=== PATIENT | female | born 1965 | race Caucasian/White ===

== ENCOUNTER 2017-08-17 10:01 | Emergency (ER) | payer SELFPAY ==
[2017-08-17 10:45] VITALS: BP 137/90; PULSE 76; RESP 20; TEMP 36.8; O2SAT 99; BMI 29.2
[2017-08-17 11:17] LABS: UTC Influenza A Antigen Negative (Negative); UTC Influenza B Antigen Negative (Negative)
--- NOTE | 2017-08-17 11:36 | XR_ITS ---
XR chest 2V Ordering Physician: Kaylah Pascual Patient Age: 51 years: Female HISTORY: ITS.REASON: sob cough congestion TECHNIQUE: PA and lateral chest COMPARISON :02/23/2016 and December 2013 FINDINGS . Lungs well expanded and clear with nothing definitely acute central markings upper normal could reflect subtle underlying bronchitis but equivocal. Heart sweetie and mediastinal structures satisfactory. IMPRESSION: --- No focal pneumonia. Nothing definitely acute. Central markings upper normal prominence could reflect some mild central airway inflammation/bronchitis but no focal pneumonia. Mild hyperexpansion.
--- NOTE | 2017-08-17 11:37 | HMH.EDUTC ---
[facility] [place] Disposition Clinical Impression: Acute bronchitis Qualifiers: Bronchitis organism: other organism Qualified Code(s): J20.8 - Acute bronchitis due to other specified organisms Disposition: Home, Self-Care Condition on Discharge: Good Instructions: Acute Bronchitis, DI for Acute Bronchitis Additional Instructions: Tylenol or ibuprofen as needed for pain Primary care this week Meds as ordered Symptoms worsen or do not improve return or be seen in ER Prescriptions: Azithromycin [Zithromax 250mg tab] 250 mg PO DIRECTED #6 tab Referrals: Bozena Edgar MD [Primary Care Provider] - Time of Disposition: 13:21 Medical Decision Making Vital Signs: 08/17/17 10:45 Temperature 98.2 F Temperature Source Temporal Artery Scan Pulse Rate [Brachial] 76 Respiratory Rate 20 Blood Pressure [Right Arm] 137/90 Blood Pressure Mean [Right Arm] 105 Blood Pressure Source [Right Arm] Automatic Cuff Blood Pressure Position [Right Arm] Sitting 02 Sat by Pulse Oximetry 99 Oxygen Delivery Method Room Air - Lab Data Lab Results 08/17/17 10:46: Influenza Type A Ag Negative, Influenza Type B Ag Negative 08/17/17 12:00: WBC 8.3, RBC 4.56, Hgb 12.9, Hct 38.7, MCV 85.0, MCH 28.3, MCHC 33.2, RDW 14.0, Plt Count 336, MPV 7.0 L, Neut % (Auto) 64.3, Lymph % (Auto) 25.5, [place] % (Auto) 4.3, Eos % (Auto) 5.5, Baso % (Auto) 0.4, Neut # (Auto) 5.3, Lymph # (Auto) 2.1, [place] # (Auto) 0.4, Eos # (Auto) 0.5 H, Baso # (Auto) 0.0 08/17/17 12:00: Sodium 145, Potassium 4.0, Chloride 107, Carbon Dioxide 31, Anion Gap 11.0, BUN 10, Creatinine 0.60, Estimated Creat Clear 135, Estimated GFR 105, Est GFR ( Amer) 128, Glucose 90, Calcium 8.9, Total Bilirubin 0.3, AST 16, ALT 46, Alkaline Phosphatase 81, Total Creatine Kinase 95, CK-MB (CK-2) 0.9, CK-MB (CK-2) Rel Index 0.9, Troponin I < 0.02, Total Protein 7.6, Albumin 3.6, Globulin 4.0 H, Albumin/Globulin Ratio 0.9 L Result diagrams: 08/17/17 12:00 08/17/17 12:00 Orders (Tests/Meds): ORDERS Category Date Time Status XR chest 2V Stat Exams 08/17/17 11:36 Taken ECG Request by /Axel Stat Y 08/17/17 11:36 Ordered - Radiology Data #1 Image(s): Chest Image Reviewed: Yes I reviewed the patient's radiology image Preliminary Findings: Normal/NAD - Physician Consults Physician Consulted: dr wynn Time: 13:15 Reason -: Pt condition Comment/Response: x ray neg - Juan Francisco Inquiry Pt receiving controlled substance: No [facility] [place] HPI - General Chief complaint: [facility] Stated complaint: sore throat congestion weak Time Seen by Provider: 08/17/17 11:37 Mode of Arrival: Ambulatory Source of Information: Patient Limitations: No Limitations Description of Symptoms (Recalled from Triage Doc. by RN): SORE THROAT, WEAKNESS, CONGESTION AND COUGH HEENT Symptoms (Recalled from RN notes): Yes Resp Symptoms (Recalled from RN notes): Yes Skin Symptoms (Recalled from RN notes): No MS Symptoms (Recalled from RN notes): No Functional Status (Recalled from RN notes): NA - History of Present Illness Provider Complaint: 51-year-old female presents for chest congestion, nasal congestion, pain between shoulder blades in the back, shortness of breath, coughing up thick green sputum and malaise since Thursday. - Related Data Home Medications Medication Instructions Recorded Confirmed Cetirizine HCl [Zyrtec] 10 mg PO DAILY 08/17/17 08/17/17 Iron [Iron 18mg Tab] 18 mg PO DAILY 08/17/17 08/17/17 Previous Rx's Medication Instructions Recorded Azithromycin [Zithromax 250mg 250 mg PO DIRECTED #6 tab 08/17/17 tab] Allergies Allergy/AdvReac Type Severity Reaction Status Date / Time promethazine [From Phenergan] Allergy Verified 08/17/17 10:48 - Worker's Comp Is this a Worker's Comp case?: No [facility] History I have reviewed the patient's past medical history: Yes - *Social History Smoking Status: Current every day smoker Tobacco Type: cig
--- NOTE | 2017-08-17 11:44 | ED_ITS ---
[facility] [place] Clinical Impression: Acute bronchitis Qualifiers: Bronchitis organism: other organism Qualified Code(s): J20.8 - Acute bronchitis due to other specified organisms Disposition: Home, Self-Care Condition on Discharge: Good Instructions: Acute Bronchitis, DI for Acute Bronchitis Additional Instructions: Tylenol or ibuprofen as needed for pain Primary care this week Meds as ordered Symptoms worsen or do not improve return or be seen in ER Prescriptions: Azithromycin [Zithromax 250mg tab] 250 mg PO DIRECTED #6 tab Referrals: Bozena Edgar MD [Primary Care Provider] - Time of Disposition: 13:21 Medical Decision Making Vital Signs: 08/17/17 10:45 Temperature 98.2 F Temperature Source Temporal Artery Scan Pulse Rate [Brachial] 76 Respiratory Rate 20 Blood Pressure [Right Arm] 137/90 Blood Pressure Mean [Right Arm] 105 Blood Pressure Source [Right Arm] Automatic Cuff Blood Pressure Position [Right Arm] Sitting 02 Sat by Pulse Oximetry 99 Oxygen Delivery Method Room Air - Lab Data Lab Results 08/17/17 10:46: Influenza Type A Ag Negative, Influenza Type B Ag Negative 08/17/17 12:00: WBC 8.3, RBC 4.56, Hgb 12.9, Hct 38.7, MCV 85.0, MCH 28.3, MCHC 33.2, RDW 14.0, Plt Count 336, MPV 7.0 L, Neut % (Auto) 64.3, Lymph % (Auto) 25.5, [place] % (Auto) 4.3, Eos % (Auto) 5.5, Baso % (Auto) 0.4, Neut # (Auto) 5.3 , Lymph # (Auto) 2.1, [place] # (Auto) 0.4, Eos # (Auto) 0.5 H, Baso # (Auto) 0.0 08/17/17 12:00: Sodium 145, Potassium 4.0, Chloride 107, Carbon Dioxide 31, Anion Gap 11.0, BUN 10, Creatinine 0.60, Estimated Creat Clear 135, Estimated GFR 105, Est GFR ( Amer) 128, Glucose 90, Calcium 8.9, Total Bilirubin 0.3, AST 16, ALT 46, Alkaline Phosphatase 81, Total Creatine Kinase 95, CK-MB ( CK-2) 0.9, CK-MB (CK-2) Rel Index 0.9, Troponin I < 0.02, Total Protein 7.6, Albumin 3.6, Globulin 4.0 H, Albumin/Globulin Ratio 0.9 L Result diagrams: 08/17/17 12:00 08/17/17 12:00 Orders (Tests/Meds): ORDERS Category Date Time Status XR chest 2V Stat Exams 08/17/17 11:36 Taken ECG Request by /Axel Stat Y 08/17/17 11:36 Ordered - Radiology Data #1 Image(s): Chest Image Reviewed: Yes I reviewed the patient's radiology image Preliminary Findings: Normal/NAD - Physician Consults Physician Consulted: dr wynn Time: 13:15 Reason -: Pt condition Comment/Response: x ray neg - Juan Francisco Inquiry Pt receiving controlled substance: No [facility] [place] - General Chief complaint: [facility] Stated complaint: sore throat congestion weak Time Seen by Provider: 08/17/17 11:37 Mode of Arrival: Ambulatory Source of Information: Patient Limitations: No Limitations Description of Symptoms (Recalled from Triage Doc. by RN): SORE THROAT, WEAKNESS , CONGESTION AND COUGH HEENT Symptoms (Recalled from RN notes): Yes Resp Symptoms (Recalled from RN notes): Yes Skin Symptoms (Recalled from RN notes): No MS Symptoms (Recalled from RN notes): No Functional Status (Recalled from RN notes): NA - History of Present Illness Provider Complaint: 51-year-old female presents for chest congestion, nasal congestion, pain between shoulder blades in the back, shortness of breath, coughing up thick green sputum and malaise since Thursday. - Related Data Home Medications Medication Instructions Recorded Confirmed Cetirizine HCl [Z
[2017-08-17 12:18] LABS: Basophils % 0.4 % (0.1-2.0); Eosinophils # 0.5 K/mm3 (0.0-0.4); Eosinophils % 5.5 % (0.1-12.0); Hematocrit 38.7 % (37.0-47.0); Hemoglobin 12.9 g/dL (12.2-16.2); Lymphocytes # 2.1 K/mm3 (0.7-4.5); Lymphocytes % 25.5 K/mm3 (10-50); Mean Corpuscular HGB Conc 33.2 g/dL (31.8-35.4); Mean Corpuscular Hemoglobin 28.3 pg (27.0-31.2); Monocytes # 0.4 K/mm3 (0.1-1.0); Monocytes % 4.3 % (1.7-9.3); Neutrophils # 5.3 K/mm3 (1.8-7.8); Neutrophils % 64.3 % (37.0-80.0); Platelet Count 336 K/mm3 (142-424); Red Blood Count 4.56 M/mm3 (4.20-5.40); White Blood Count 8.3 K/mm3 (4.8-10.8)
[2017-08-17 12:59] LABS: Alanine Aminotransferase 46 U/L (12-78); Albumin Level 3.6 gm/dL (3.4-5.0); Albumin/Globulin Ratio 0.9 (1.1-1.8); Alkaline Phosphatase 81 U/L (46-116); Aspartate Amino Transferase 16 U/L (15-37); Bilirubin,Total 0.3 mg/dL (0.2-1.0); Blood Urea Nitrogen 10 mg/dL (7-18); CKMB Relative Index 0.9 U/L (0-4.0); Calcium 8.9 mg/dL (8.5-10.1); Carbon Dioxide 31 mmol/L (21.0-32.0); Chloride 107 mmol/L (98-107); Creatine Kinase 95 U/L (26-192); Creatine Kinase MB 0.9 mg/ml (0.0-3.6); Creatinine Clearance Estimated 135 mL/min (0-300); Estimated Glomerular Filt Rate 105 ml/min (>60); GFR (African American) 128 ML/MIN (>60); Glucose 90 mg/dL (74-106); Sodium 145 mmol/L (136-145); Total Protein,Serum 7.6 gm/dL (6.4-8.2); Troponin I < 0.02 ng/ml (0.00-0.06)
== END 2017-08-17 13:28 | disposition home or self-care (01) ==
PROVIDERS: Emergency Provider Nurse Practitioner Family; Family Provider Family Medicine; PCP Family Medicine
DX: J20.8 Acute bronchitis due to other specified organisms (principal); F17.210 Nicotine dependence, cigarettes, uncomplicated
CPT/HCPCS: 36415; 71046; 80053; 82550; 82553; 84484; 85025; 87804; 93005; 99202

== ENCOUNTER 2021-08-08 09:03 | Emergency (ER) | payer BC, SELFPAY ==
--- NOTE | 2021-08-08 09:41 | HMH.EDUTC ---
[facility] [place] Clinical Impression: Viral syndrome Disposition: Home, Self-Care Condition on Discharge: Good Instructions: DI for Viral Syndrome Additional Instructions: Drink plenty of fluids. Take tylenol or ibuprofen for pain or fever. Take the medications as directed. Follow up with your regular doctor. GO TO THE ER FOR ANY WORSENING SYMPTOMS Quarantine until you know the results of your covid-19 test. Notify your school or workplace of your results and follow their instructions regarding return to work/school. The medicines we sent in are more for symptoms that might start. Make sure you are drinking plenty of fluids. Water or an electrolyte sports drink would be best. Prescriptions: Ondansetron [Zofran 4mg ODT] 4 mg PO Q8HP PRN #20 tab PRN Reason: Nausea Transmission Status: Pending to [facility] Benzonatate [Benzonatate 100mg cap] 100 mg PO TIDP PRN #30 cap PRN Reason: Cough Transmission Status: Pending to [facility] Azithromycin [Z-Vik 250mg Tab*] 250 mg PO UD DOSE PK #6 tab Transmission Status: Pending to [facility] Referrals: Donaldo Pride MD [Primary Care Provider] - Time of Disposition: 11:48 Medical Decision Making - Medical Records Medical records reviewed: No: I reviewed the patient's medical records. - Juan Francisco Inquiry Pt receiving controlled substance: No Vital Signs: 08/08/21 09:44 08/08/21 10:04 Temperature 98.7 F Temperature Source Oral Pulse Rate [Left] 81 Pulse Rate [Orthostatic Lying] 79 Pulse Rate [Orthostatic Sitting] 81 Pulse Rate [Orthostatic Standing] 84 Respiratory Rate 18 Blood Pressure [Orthostatic Lying] 92/63 L Blood Pressure [Orthostatic Sitting] 93/73 L Blood Pressure [Orthostatic Standing] 77/48 L Blood Pressure [Right Arm] 93/73 L Blood Pressure Mean [Right Arm] 79 02 Sat by Pulse Oximetry 96 - Lab Data Lab results reviewed: Yes: I reviewed the patient's lab results. Lab Results 08/08/21 09:32: Group A Strep Rapid Negative 08/08/21 10:06: WBC 6.3, RBC 4.74, Hgb 14.0, Hct 42.1, MCV 88.8, MCH 29.5, MCHC 33.2, RDW 13.0, Plt Count 281, MPV 7.4, Neut % (Auto) 67.2, Lymph % (Auto) 23.5, [place] % (Auto) 5.3, Eos % (Auto) 0.5, Baso % (Auto) 3.4 H, Neut # (Auto) 4.2, Lymph # (Auto) 1.5, [place] # (Auto) 0.3, Eos # (Auto) 0.0, Baso # (Auto) 0.2 08/08/21 10:06: Sodium 135 L, Potassium 3.6, Chloride 100, Carbon Dioxide 26, Anion Gap 12.6, BUN 11, Creatinine 0.80, Estimated Creat Clear 110, Estimated GFR 74, Est GFR ( Amer) 90, Glucose 130 H, Calcium 9.0, Total Bilirubin 0.4, AST 39 H, ALT 26, Alkaline Phosphatase 62, Total Protein 7.5, Albumin 4.5, Globulin 3.0, Albumin/Globulin Ratio 1.5 Result diagrams: 08/08/21 10:06 08/08/21 10:06 Orders (Tests/Meds): ED MEDICATIONS Generic Name Dose Route Start Last Admin Trade Name Freq PRN Reason Stop Dose Admin Sodium Chloride 1,000 mls @ 999 mls/hr 08/08/21 10:15 08/08/21 10:15 Sod Chlor 0.9% 1000ml Bag IV 08/08/21 11:15 999 mls/hr .Q1H1M GERRY Administration ORDERS Category Date Time Status Full Resp Panel w/COVID ([facility]) Routine Lab 08/08/21 09:56 Received Strep Screen Confirmation Stat Micro 08/08/21 09:32 Received [facility] [place] - General Stated complaint: sore throat, weakness, cough, body aches Time Seen by Provider: 08/08/21 09:41 - History of Present Illness Provider Complaint: She states that for the past 2 days she has had a cough, chest congestion, fever up to 101.5, body aches, and fatigue. She has been vaccinated against covid-19. - Related Data Home Medications Medication Instructions Recorded Confirmed Cetirizine HCl [Zyrtec] 10 mg PO DAILY 08/17/17 06/16/18 Iron [Iron 18mg Tab] 18 mg PO DAILY 08/17/17 06/16/18 Previous Rx's Medication Instructions Recorded Azithromycin [Z-Vik 250mg Tab*] 250 mg PO UD DOSE PK #6 tab 08/08/21 Benzonatate [Benzonatate 100mg 100 mg PO TIDP PRN #30 ca
[2021-08-08 09:44] VITALS: BP 93/73; PULSE 81; RESP 18; TEMP 37.1; O2SAT 96; BMI 33.3
--- NOTE | 2021-08-08 09:49 | XR_ITS ---
FINAL REPORT CLINICAL HISTORY: cough COMPARISON: August 17, 2017 FINDINGS: Two views of the chest were obtained. The heart size and pulmonary vascularity are within normal limits. The mediastinum is normal. No acute pulmonary abnormality is identified. There is no pneumothorax. The bony thorax is intact. IMPRESSION: No active cardiopulmonary disease. Reviewed, Interpreted and Dictated by Mitch Hubbard III, MD Transcribed by Eric Sharma Authenticated by Mitch Hubbard III, MD on 08/08/2021 11:00:27 AM [facility]
[2021-08-08 10:04] VITALS: BP 77/48; BP 92/63; BP 93/73; PULSE 79; PULSE 81; PULSE 84
[2021-08-08 10:05] LABS: Adenovirus,PCR Not Detected (NotDetected); Bordetella Pertussis Not Detected (NotDetected); Chlamydophila Pneumoniae, PCR Not Detected (NotDetected); Coronavirus 229E Not Detected (NotDetected); Coronavirus NL63 Not Detected (NotDetected); Coronavirus OC43 Not Detected (NotDetected); Coronovirus HKU1,PCR Not Detected (NotDetected); Human Metapneumovirus Not Detected (NotDetected); Influenza A, PCR Not Detected (NotDetected); Influenza AH1, 2009 Not Detected (NotDetected); Influenza AH1, PCR Not Detected (NotDetected); Influenza AH3,PCR Not Detected (NotDetected); Influenza B, PCR Not Detected (NotDetected); Mycoplasma Pneumoniae, PCR Not Detected (NotDetected); Parainfluenza 1, PCR Not Detected (NotDetected); Parainfluenza 2, PCR Not Detected (NotDetected); Parainfluenza 3, PCR Not Detected (NotDetected); Parainfluenza 4, PCR Not Detected (NotDetected); Respiratory Syncytial Virus Not Detected (NotDetected); Rhinovirus/Enterovirus Not Detected (NotDetected)
[2021-08-08 10:28] LABS: Strep Scrn Group A (Rapid) Negative (Negative)
[2021-08-08 10:49] LABS: Basophils # 0.2 K/mm3 (0-0.2); Basophils % 3.4 % (0.1-2.0); Eosinophils % 0.5 % (0.1-12.0); Hematocrit 42.1 % (37.0-47.0); Lymphocytes # 1.5 K/mm3 (0.7-4.5); Lymphocytes % 23.5 % (10-50); Mean Corpuscular HGB Conc 33.2 g/dL (31.8-35.4); Mean Corpuscular Hemoglobin 29.5 pg (27.0-31.2); Mean Corpuscular Volume 88.8 fl (81-99); Mean Platelet Volume 7.4 fl (7.4-10.4); Monocytes # 0.3 K/mm3 (0.1-1.0); Monocytes % 5.3 % (1.7-9.3); Neutrophils # 4.2 K/mm3 (1.8-7.8); Neutrophils % 67.2 % (37.0-80.0); Platelet Count 281 K/mm3 (142-424); Red Blood Count 4.74 M/mm3 (4.20-5.40); White Blood Count 6.3 K/mm3 (4.8-10.8)
[2021-08-08 10:55] LABS: Alanine Aminotransferase 26 U/L (12-78); Albumin Level 4.5 g/dl (3.5-5.0); Albumin/Globulin Ratio 1.5 (1.1-1.8); Alkaline Phosphatase 62 U/L (38-126); Anion Gap 12.6 mEq/L (5-15); Aspartate Amino Transferase 39 U/L (14-36); Bilirubin,Total 0.4 mg/dl (0.2-1.3); Blood Urea Nitrogen 11 mg/dl (7-17); Carbon Dioxide 26 mmol/L (22.0-30.0); Chloride 100 mmol/L (98-107); Creatinine Clearance Estimated 110 mL/min (50-200); Estimated Glomerular Filt Rate 74 ml/min (>60); GFR (African American) 90 ML/MIN (>60); Glucose 130 mg/dl (74-100); Potassium 3.6 mmoL/L (3.5-5.1); Sodium 135 mmol/L (136-145); Total Protein,Serum 7.5 g/dl (6.3-8.2)
[2021-08-08 12:12] VITALS: BP 107/71; PULSE 84; RESP 18; TEMP 37.1
[2021-08-08 12:48] LABS: Coronavirus 19, PCR Detected (NotDetected)
== END 2021-08-08 12:13 | disposition home or self-care (01) ==
PROVIDERS: Emergency Provider Nurse Practitioner Family; PCP Family Medicine
DX: B34.9 Viral infection, unspecified (principal); F17.290 Nicotine dependence, other tobacco product, uncomplicated
CPT/HCPCS: 71046; 80053; 85025; 87430; 87581; 87632; 87798; 96365; 99203; C9803; G0463; U0003; U0005

== ENCOUNTER 2022-05-31 08:18 | Emergency (ER) | payer BC, SELFPAY ==
[2022-05-31 08:40] VITALS: BP 153/84; PULSE 73; RESP 18; TEMP 36.9; O2SAT 98; BMI 33.5
[2022-05-31 08:57] LABS: Adenovirus,PCR Not Detected (NotDetected); Bordetella Pertussis Not Detected (NotDetected); Chlamydophila Pneumoniae, PCR Not Detected (NotDetected); Coronavirus 19, PCR Not Detected (NotDetected); Coronavirus 229E Not Detected (NotDetected); Coronavirus NL63 Not Detected (NotDetected); Coronavirus OC43 Not Detected (NotDetected); Coronovirus HKU1,PCR Not Detected (NotDetected); Human Metapneumovirus Not Detected (NotDetected); Influenza A, PCR Not Detected (NotDetected); Influenza AH1, 2009 Not Detected (NotDetected); Influenza AH1, PCR Not Detected (NotDetected); Influenza AH3,PCR Not Detected (NotDetected); Influenza B, PCR Not Detected (NotDetected); Mycoplasma Pneumoniae, PCR Not Detected (NotDetected); Parainfluenza 1, PCR Not Detected (NotDetected); Parainfluenza 2, PCR Not Detected (NotDetected); Parainfluenza 3, PCR Not Detected (NotDetected); Parainfluenza 4, PCR Not Detected (NotDetected); Respiratory Syncytial Virus Not Detected (NotDetected)
--- NOTE | 2022-05-31 08:58 | EXP.UTC ---
Discharge Plan Disposition Patient Disposition: Home, Self-Care Condition: Good Prescriptions Prescriptions: New azithromycin [Zithromax Z-Vik] 250 mg tablet See Rx Instructions .ROUTE .COMPLEX 5 Days Qty: 6 0RF Rx Instructions: For 250 mg dose pack: take 500 mg today (day 1), then 250 mg for 4 days (days 2-5) methylprednisolone [Medrol (Vik)] 4 mg tablets,dose pack See Rx Instructions .Route .COMPLEX 6 Days Qty: 21 0RF Rx Instructions: taper pack; No Action cetirizine [Zyrtec] 10 MG tablet 10 mg PO DAILY iron 18 MG tablet 18 mg PO DAILY azithromycin 250 MG tablet 250 mg PO UD DOSE PK Qty: 6 0RF Rx Instructions: Take two (2) tablets today, then one (1) tablet days #2 thru #5 benzonatate 100 MG capsule 100 mg PO TIDP PRN (Reason: Cough) Qty: 30 0RF ondansetron 4 MG tablet,disintegrating 4 mg PO Q8HP PRN (Reason: Nausea) Qty: 20 0RF Referrals Follow up/Referrals: Bay Sherman MD [Primary Care Provider] - See instructions Activity Restrictions/Add. Instructions Additional Instructions/Restrictions: *Monitor Temp, Over the counter Motrin or Tylenol as directed/as needed Tylenol every 4 hours and Motrin every 6 hours (as long as your family doctor has told you that you can take it) for fever or pain. and straight to ER if unable to lower temp less than 101.0 after medication given *Warm salt water gargles may help to soothe the throat *Throat Lozenges? *Warm fluids like tea with honey may help to soothe the throat? *Sleep elevated *Humidifier/Vaporizer Your throat swab was sent for culture. Those results are typically sent to your primary care. Be sure to follow up in 2-3 days with your family doctor/primary care physician if no improvement so they can review those result and treat if necessary. If you don?t have a primary care doctor, I recommend you get one but in the mean time, you will have to return to a walk in clinic Follow up IMMEDIATELY for new or worsening symptoms or no Noticeable improvement over the next 48-72 hours. 911 for difficulty breathing or swallowing You were tested for today for COVID19 your test result should be back in the next 24-48 hours, you may check your results on the [facility] My Health Portal Clinical Impressions Clinical Impression: Sinusitis Stand Alone Forms Stand Alone Forms: Work/School Release Instructions Patient Instructions: DI for Sinusitis, Sinusitis Discharge ED Provider: Lisa Calvin [facility] [place] General Stated complaint: sore throat, sinus pressure, sob, cough Time Seen by Provider: 05/31/22 08:58 History of Present Illness Provider Complaint: Patient state that she has been having sinus pain and pressure, sore throat, feeling like she cant breath through her nose and cough States that today she was feeling worse so she came in States that she was exposed to COVID last week but has taken test and it was negative thinks she has a sinus infection Related Data Home Medications Medication Instructions Recorded Confirmed cetirizine 10 mg tablet (Zyrtec) 10 mg PO DAILY ALLERGIES 08/17/17 06/16/18 iron 18 mg tablet 18 mg PO DAILY DEF 08/17/17 06/16/18 Previous Rx's Medication Instructions Recorded azithromycin 250 mg tablet 250 mg PO UD DOSE PK #6 tabs 08/08/21 benzonatate 100 mg capsule 100 mg PO TIDP PRN Cough #30 caps 08/08/21 ondansetron 4 mg disintegrating 4 mg PO Q8HP PRN Nausea #20 tabs 08/08/21 tablet azithromycin 250 mg tablet See Rx Instructions PO .COMPLEX 5 05/31/22 (Zithromax Z-Vik) days #6 tabs methylprednisolone 4 mg tablets in See Rx Instructions .Route 05/31/22 a dose pack (Medrol (Vik)) .COMPLEX 6 days #21 tabs Allergies Allergy/AdvReac Type Severity Reaction Status Date / Time promethazine [From Phenergan] Allergy Verified 08/17/17 10:48 [facility] Medical History (Updated 05/31/22 @ 09:16 by Lisa Calvin APRN) Anxiety Depression History
[2022-05-31 09:13] LABS: UTC Strep Screen (Rapid) Negative (Negative)
[2022-05-31 09:20] VITALS: BP 153/84; PULSE 73; RESP 18; TEMP 36.9; O2SAT 98
[2022-05-31 15:34] LABS: Rhinovirus/Enterovirus Detected (NotDetected)
== END 2022-05-31 09:26 | disposition home or self-care (01) ==
PROVIDERS: Emergency Provider Nurse Practitioner; PCP Family Medicine
DX: J32.9 Chronic sinusitis, unspecified (principal)
CPT/HCPCS: 87581; 87632; 87798; 87880; 99212; C9803; G0463; U0003; U0005

== ENCOUNTER 2022-07-20 19:40 | Observation (INO) | payer OTHER, SELFPAY ==
[2022-07-20] VITALS (8 sets, daily range): BP systolic 101–143; BP diastolic 69–103; PULSE 86–155; RESP 17–23; TEMP 36.9; O2SAT 97–100; BMI 35.2
--- NOTE | 2022-07-20 19:51 | XR_ITS ---
PROCEDURE INFORMATION: Exam: XR Chest Exam date and time: 07/20/2022 8:17 PM Age: 56 years old Clinical indication: Pain; Angina pectoris; Additional info: Cp, SOA, afib rvr TECHNIQUE: Imaging protocol: Radiologic exam of the chest. Views: 1 view. COMPARISON: CR XR CHEST 2V 08/08/2021 10:04 AM FINDINGS: Lungs: Diminished lung volumes. No consolidation. Pleural spaces: No pneumothorax. Heart/Mediastinum: No cardiomegaly. Bones/joints: Degenerative changes of the shoulders. No acute abnormality. IMPRESSION: No acute findings.
[2022-07-20 19:59] LABS: Basophils # 0.1 K/mm3 (0-0.2); Basophils % 1.3 % (0.1-2.0); Eosinophils # 0.3 K/mm3 (0.0-0.4); Eosinophils % 4.2 % (0.1-12.0); Hematocrit 41.6 % (37.0-47.0); Lymphocytes # 3.4 K/mm3 (0.7-4.5); Lymphocytes % 48.5 % (10-50); Mean Corpuscular HGB Conc 33.6 g/dL (31.8-35.4); Mean Corpuscular Hemoglobin 29.5 pg (27.0-31.2); Mean Corpuscular Volume 87.7 fl (81-99); Mean Platelet Volume 7.3 fl (7.4-10.4); Monocytes # 0.4 K/mm3 (0.1-1.0); Monocytes % 5.5 % (1.7-9.3); Neutrophils # 2.8 K/mm3 (1.8-7.8); Neutrophils % 40.5 % (37.0-80.0); Platelet Count 378 K/mm3 (142-424); Red Blood Count 4.74 M/mm3 (4.20-5.40); Red Cell Distribution Width 13.4 % (11.5-17.5)
[2022-07-20 20:01] LABS: Coronavirus 19, PCR Not Detected (NotDetected); Influenza A, PCR Not Detected (NotDetected); Influenza B, PCR Not Detected (NotDetected)
[2022-07-20 20:02] LABS: Chloride 104 mmol/L (98-107)
[2022-07-20 20:03] LABS: Potassium 3.6 mmoL/L (3.5-5.1); Sodium 140 mmol/L (136-145)
[2022-07-20 20:05] LABS: Alanine Aminotransferase 31 U/L (12-78); Alkaline Phosphatase 63 U/L (38-126); Aspartate Amino Transferase 33 U/L (14-36); Bilirubin,Total 0.4 mg/dl (0.2-1.3); Blood Urea Nitrogen 14 mg/dl (7-17); Creatinine Clearance Estimated 115 mL/min (50-200); Estimated Glomerular Filt Rate 74 ml/min (>60); GFR (African American) 90 ML/MIN (>60); Magnesium 2.1 mg/dl (1.6-2.3)
[2022-07-20 20:06] LABS: Albumin Level 4.5 g/dl (3.5-5.0); Albumin/Globulin Ratio 1.4 (1.1-1.8); Anion Gap 11.6 mEq/L (5-15); Calcium 9.4 mg/dl (8.4-10.2); Carbon Dioxide 28 mmol/L (22.0-30.0); Globulin 3.3 g/dL (1.3-3.2); Glucose 104 mg/dl (74-100); Total Protein,Serum 7.8 g/dl (6.3-8.2)
--- NOTE | 2022-07-20 20:19 | HMH.EDARPALP ---
Discharge Plan Disposition Patient Disposition: Admitted As Inpatient Prescriptions Prescriptions: No Action cetirizine [Zyrtec] 10 MG tablet 10 mg PO DAILY iron 18 MG tablet 18 mg PO DAILY Referrals Follow up/Referrals: Provider,Referral, MD [Referring] - See instructions Clinical Impressions Clinical Impression: Atrial flutter Discharge ED Provider: Guillaume Maria Arrhythmia/Palpitations HPI General Chief Complaint: Arrhythmia/Palpitations Stated Complaint: chest pain Time Seen by Provider: 07/20/22 20:00 Mode of Arrival: Family Vehicle Source of Information: Patient and Medical Record Limitations: No Limitations History of Present Illness HPI narrative: pt with feeling of fast hr with assoc chest pain MD complaint: rapid heart beat and palpitations Onset (ago): hour(s) Duration: intermittent Severity: moderate Associated symptoms: denies other symptoms Related Data Home Medications Medication Instructions Recorded Confirmed cetirizine 10 mg tablet (Zyrtec) 10 mg PO DAILY ALLERGIES 08/17/17 06/16/18 iron 18 mg tablet 18 mg PO DAILY DEF 08/17/17 06/16/18 Allergies Allergy/AdvReac Type Severity Reaction Status Date / Time promethazine [From Phenergan] Allergy Verified 08/17/17 10:48 [facility] Disclaimer: The information contained in this section may have been updated after the patient was seen, as this information can be updated by other users. Medical History Anxiety Depression History of anemia Urinary tract infection Surgical History (Updated 05/31/22 @ 09:02 by Ekta Negrete RN) History of tubal ligation Social History Smoking Status: Current every day smoker tobacco type: e-cigarettes alcohol intake: former current occupational status: other Travel in the last 8 weeks: None ROS Obtained: Yes All systems reviewed & no additional complaints except as documented Physical Exam General General appearance: alert Head Head exam: normocephalic Eye Eye exam: Present PERRL and EOMI ENT ENT exam: Present mucous membranes moist Neck Neck exam: Present trachea midline Respiratory Respiratory exam: Present normal lung sounds bilaterally Cardiovascular Cardiovascular exam: Present tachycardia Abdominal Exam Abdominal exam: Present soft Extremities Exam Extremities exam: Present full ROM; Absent calf tenderness Neurological Exam Neurological exam: Present alert and CN II-XII intact Psychiatric Psychiatric exam: Present normal affect Skin Skin exam: Absent rash Medical Decision Making Medical Records Medical records reviewed: Yes I reviewed the patient's medical records. Juan Francisco Inquiry Pt receiving controlled substance: No Vital Signs: 07/20/22 19:41 Temperature 98.5 F Temperature Source Oral Pulse Rate [Right] 155 H Respiratory Rate 23 Blood Pressure [Right Arm] 143/103 H Blood Pressure Mean [Right Arm] 116 Blood Pressure Source [Right Arm] Automatic Cuff 02 Sat by Pulse Oximetry 100 Oxygen Delivery Method Room Air Lab Data Lab results reviewed: Yes I reviewed the patient's lab results. Lab Results 07/20/22 19:42: WBC 7.0, RBC 4.74, Hgb 14.0, Hct 41.6, MCV 87.7, MCH 29.5, MCHC 33.6, RDW 13.4, Plt Count 378, MPV 7.3 L, Neut % (Auto) 40.5, Lymph % (Auto) 48.5, [place] % (Auto) 5.5, Eos % (Auto) 4.2, Baso % (Auto) 1.3, Neut # (Auto) 2.8, Lymph # (Auto) 3.4, [place] # (Auto) 0.4, Eos # (Auto) 0.3, Baso # (Auto) 0.1 07/20/22 19:42: Sodium 140, Potassium 3.6, Chloride 104, Carbon Dioxide 28, Anion Gap 11.6, BUN 14, Creatinine 0.80, Estimated Creat Clear 115, Estimated GFR 74, Est GFR ( Amer) 90, Glucose 104 H, Calcium 9.4, Total Bilirubin 0.4, AST 33, ALT 31, Alkaline Phosphatase 63, Troponin I < 0.01, Total Protein 7.8, Albumin 4.5, Globulin 3.3 H, Albumin/Globulin Ratio 1.4, TSH 5.51 H, Thyroxine (T4) 7.7 07/20/22 19:42: Magnesium
[2022-07-20 20:23] LABS: T4 (Thyroxine) 7.7 ug/dl (5.53-11.0)
--- NOTE | 2022-07-20 20:24 | ECG_ITS ---
APPROVED REPORT Exam: Resting ECG HR:158 bpm ECG Measurements Heart Rate 158 AXES QRSd 90 QRS 17 QT 257 T 75 QTc 345 Conclusion ATRIAL FIBRILLATION WITH RAPID VENTRICULAR RESPONSE NONSPECIFIC ST & T-WAVE ABNORMALITY CRITICAL TEST RESULT UNCONFIRMED REPORT Electronically signed by : Donaldo Pa MD 07/21/2022 20:03:35
[2022-07-20 20:34] LABS: Troponin I < 0.01 ng/ml (0.00-0.034)
[2022-07-20 20:37] LABS: Thyroid Stimulating Hormone 5.51 uIU/mL (0.465-4.68)
--- NOTE | 2022-07-20 21:03 | EXP.HP ---
History of Present Illness *Admission Date: 07/20/22 [facility] Disclaimer: The information contained in this section may have been updated after the patient was seen, as this information can be updated by other users. Medical History (Updated 07/20/22 @ 20:55 by Guillaume Maria MD) Anxiety Depression History of anemia Urinary tract infection Surgical History (Updated 05/31/22 @ 09:02 by Ekta Negrete, RN) History of tubal ligation Social History (Updated 05/31/22 @ 09:02 by Ekta Negrete RN) Smoking Status: Current every day smoker tobacco type: e-cigarettes alcohol intake: former current occupational status: other Travel in the last 8 weeks: None Meds Home Medications and Allergies Home Medications Medication Instructions Recorded Confirmed Type cetirizine 10 mg tablet (Zyrtec) 10 mg PO DAILY ALLERGIES 08/17/17 06/16/18 History iron 18 mg tablet 18 mg PO DAILY DEF 08/17/17 06/16/18 History New Prescriptions to Start Prescriptions: Allergies Allergy/AdvReac Type Severity Reaction Status Date / Time promethazine [From Phenergan] Allergy Verified 08/17/17 10:48 Exam Data for Last 24 hours Vital signs and Labs for Last 24 Hours: Temp Pulse Resp BP Pulse Ox 98.5 F 155 H 23 143/103 H 100 07/20/22 19:41 07/20/22 19:41 07/20/22 19:41 07/20/22 19:41 07/20/22 19:41 Laboratory Results - last 24 hr 07/20/22 19:42: WBC 7.0, RBC 4.74, Hgb 14.0, Hct 41.6, MCV 87.7, MCH 29.5, MCHC 33.6, RDW 13.4, Plt Count 378, MPV 7.3 L, Neut % (Auto) 40.5, Lymph % (Auto) 48.5, [place] % (Auto) 5.5, Eos % (Auto) 4.2, Baso % (Auto) 1.3, Neut # (Auto) 2.8, Lymph # (Auto) 3.4, [place] # (Auto) 0.4, Eos # (Auto) 0.3, Baso # (Auto) 0.1 07/20/22 19:42: Sodium 140, Potassium 3.6, Chloride 104, Carbon Dioxide 28, Anion Gap 11.6, BUN 14, Creatinine 0.80, Estimated Creat Clear 115, Estimated GFR 74, Est GFR ( Amer) 90, Glucose 104 H, Calcium 9.4, Total Bilirubin 0.4, AST 33, ALT 31, Alkaline Phosphatase 63, Troponin I < 0.01, Total Protein 7.8, Albumin 4.5, Globulin 3.3 H, Albumin/Globulin Ratio 1.4, TSH 5.51 H, Thyroxine (T4) 7.7 07/20/22 19:42: Magnesium 2.1 07/20/22 19:50: SARS-CoV-2 (PCR) Not detected, Influenza A Untype (PCR) Not detected, Influenza Type B (PCR) Not detected I & O for Last 24 hours: Intake & Output 07/17/22 07/18/22 07/19/22 07/20/22 23:59 23:59 23:59 23:59 Weight 92.986 kg
[2022-07-20 21:18] LABS: HDL Cholesterol 73 mg/dl (40-60); Triglycerides 171 mg/dl (30-150); VLDL Cholesterol 34 mg/dL (0-40)
[2022-07-20 21:29] LABS: Direct LDL Cholesterol 186.71 mg/dL (100-129)
[2022-07-20 21:34] LABS: Cholesterol 363 mg/dl (140-200)
--- NOTE | 2022-07-20 21:34 | PC.NURSE ---
patient informed she was staying down in the ER. Patient moved to a regular bed @ this time.
--- NOTE | 2022-07-20 21:45 | EXP.HP ---
History of Present Illness *Admission Date: 07/20/22 *Reason for visit:: Palpitations, Chest pain, dizziness, neck pain *History of present illness: Ms. Villanueva is a 56-year-old female with a past medical history of Anxiety Disorder, Iron Deficiency anemia, and Depression. She presented with an acute onset of chest pain associated with heart burn, neck pain, dizziness, palpitations and anxiety that started a few hours prior to presentation. In the ER she was found to be in Atrial Fibrillation with a rate of 158. TSH was 5.51, Free T4 was 7.7. Troponin was <0.01. Cxray showed no acute cardiopulmonary findings. Covid and Flu Testing were negative. The patient was given a loading dose of Cardizem at 10 mg and placed on a Cardizem gtt. She was given Lovenox for anticoagulation. Echo will be ordered for the am and troponin will be trended due to report of symptoms prior to presentation. The plan of care was discussed with the patient and her in length and detail at bedside in the ER prior to her admission. Both verbalized understanding and agreement with the plan of care. [facility] Disclaimer: The information contained in this section may have been updated after the patient was seen, as this information can be updated by other users. Medical History Anxiety Depression History of anemia Urinary tract infection Surgical History History of tubal ligation Family History (Updated 07/21/22 @ 08:16 by Renuka Lopez RN) No significant family history Social History (Updated 07/21/22 @ 08:17 by Renuka Lopez RN) Smoking Status: Current every day smoker tobacco type: e-cigarettes alcohol intake: former current occupational status: other Travel in the last 8 weeks: None Review of Systems Review of Systems Review of systems:: pertinent systems reviewed and negative unless documented below Constitutional Constitutional: Reports system reviewed and no additional complaints, except as documented Eyes Eyes: Reports system reviewed and no additional complaints, except as documented ENT Ears, Nose, Mouth, and Throat: Reports system reviewed and no additional complaints, except as documented and Reports dizziness *Cardiovascular Cardiovascular: Reports chest pain, Reports irregular heart rhythm and Reports palpitations *Respiratory Respiratory: Reports system reviewed and no additional complaints, except as documented *Gastrointestinal Gastrointestinal: Reports system reviewed and no additional complaints, except as documented *Genitourinary Genitourinary: Reports system reviewed and no additional complaints, except as documented *Musculoskeletal Musculoskeletal: Reports system reviewed and no additional complaints, except as documented Integumentary/Breasts Skin/Breast: Reports system reviewed and no additional complaints, except as documented *Neurologic Neurologic: Reports dizziness Psychiatric Psychiatric: Reports system reviewed and no additional complaints, except as documented Endocrine Endocrine: Reports system reviewed and no additional complaints, except as documented and Reports palpitations Hematologic/Lymphatic Hematologic/Lymphatic: Reports system reviewed and no additional complaints, except as documented Allergic/Immunologic Allergic/Immunologic: Reports system reviewed and no additional complaints, except as documented Meds Home Medications and Allergies Home Medications Medication Instructions Recorded Confirmed Type cetirizine 10 mg tablet (Zyrtec) 10 mg PO DAILY ALLERGIES 08/17/17 07/21/22 History iron 18 mg tablet 18 mg PO DAILY DEF 08/17/17 07/21/22 History diltiazem HCl 120 mg capsule,24 120 mg PO DAILY 30 days #30 caps 07/21/22 Rx hr,extended release meloxicam 7.5 mg tablet 7.5 mg PO DAILY Pain 07/21/22 07/21/22 History New Prescriptions to Start Prescriptions: diltiazem
[2022-07-20 23:38] LABS: Troponin I < 0.01 ng/ml (0.00-0.034)
--- NOTE | 2022-07-20 23:54 | PC.NURSE ---
Called Armin Thakur, and let her know pt has maintained NSR 70-75 for >30min. Pt reports symptoms have decreased: SOA, weakness, headache, and chest pain. Pt also states she is not having any more fluttering feelings. Armin states she will put in order for Cardizem PO dose.
[2022-07-21] VITALS (11 sets, daily range): BP systolic 100–124; BP diastolic 61–80; PULSE 58–78; RESP 14–17; TEMP 36.5–36.7; O2SAT 96–99; BMI 35.4
--- NOTE | 2022-07-21 01:00 | PC.NURSE ---
@ 0100 S/W Armin Thakur to clarify that she would like PO dose of Cardizem now and stop gtt in 1 hr.
[2022-07-21 02:23] LABS: Troponin I < 0.01 ng/ml (0.00-0.034)
--- NOTE | 2022-07-21 03:16 | PC.NURSE ---
Rounded on pt, no needs at this time. Cardizem gtt stopped
--- NOTE | 2022-07-21 05:00 | PC.NURSE ---
rounded on pt, no needs at this time. NSR per monitor, HR 63
[2022-07-21 07:06] LABS: Basophils # 0.1 K/mm3 (0-0.2); Basophils % 0.9 % (0.1-2.0); Eosinophils # 0.3 K/mm3 (0.0-0.4); Eosinophils % 5.5 % (0.1-12.0); Hematocrit 36.2 % (37.0-47.0); Lymphocytes # 2.9 K/mm3 (0.7-4.5); Lymphocytes % 54.4 % (10-50); Mean Corpuscular HGB Conc 33.4 g/dL (31.8-35.4); Mean Corpuscular Hemoglobin 29.9 pg (27.0-31.2); Mean Corpuscular Volume 89.5 fl (81-99); Mean Platelet Volume 6.9 fl (7.4-10.4); Monocytes # 0.3 K/mm3 (0.1-1.0); Monocytes % 4.9 % (1.7-9.3); Neutrophils # 1.8 K/mm3 (1.8-7.8); Neutrophils % 34.3 % (37.0-80.0); Platelet Count 316 K/mm3 (142-424); Red Blood Count 4.05 M/mm3 (4.20-5.40); Red Cell Distribution Width 13.4 % (11.5-17.5); White Blood Count 5.3 K/mm3 (4.8-10.8)
[2022-07-21 07:08] LABS: Chol/HDL Ratio 5.1 (1-3.5); Cholesterol 274 mg/dl (140-200); HDL Cholesterol 54 mg/dl (40-60); Triglycerides 90 mg/dl (30-150); VLDL Cholesterol 18 mg/dL (0-40)
[2022-07-21 07:10] LABS: Alanine Aminotransferase 29 U/L (12-78); Albumin Level 3.8 g/dl (3.5-5.0); Albumin/Globulin Ratio 1.4 (1.1-1.8); Alkaline Phosphatase 48 U/L (38-126); Aspartate Amino Transferase 36 U/L (14-36); Bilirubin,Total 0.4 mg/dl (0.2-1.3); Blood Urea Nitrogen 11 mg/dl (7-17); Calcium 8.3 mg/dl (8.4-10.2); Carbon Dioxide 28 mmol/L (22.0-30.0); Creatinine Clearance Estimated 132 mL/min (50-200); Estimated Glomerular Filt Rate 87 ml/min (>60); GFR (African American) 105 ML/MIN (>60); Globulin 2.7 g/dL (1.3-3.2); Glucose 105 mg/dl (74-100); Potassium 3.6 mmoL/L (3.5-5.1); Sodium 140 mmol/L (136-145); Total Protein,Serum 6.5 g/dl (6.3-8.2)
[2022-07-21 07:11] LABS: Hemoglobin 12.2 g/dL (12.2-16.2); MANUAL DIFFERENTIAL MANUAL DIFFERENTIAL (MANUAL DIFF)
[2022-07-21 07:13] LABS: Anion Gap 7.6 mEq/L (5-15); Chloride 108 mmol/L (98-107)
[2022-07-21 07:27] LABS: Troponin I < 0.01 ng/ml (0.00-0.034)
--- NOTE | 2022-07-21 07:29 | PC.NURSE ---
Christopher transporting pt upstairs to room.
[2022-07-21 07:32] LABS: Eosinophils % 5 % (0-3); Lymphocytes % 53 % (10-50); Monocytes % 7 % (2-9); Neutrophils % 35 % (42-76); Platelet Estimate Normal; RBC Morphology Normal; Total Cells Counted 100
--- NOTE | 2022-07-21 07:32 | EXP.DC.SUM ---
General Admission date:: 07/21/22 Discharge date: 07/21/22 HPI HPI HPI: Ms. Villanueva is a 56-year-old female with a past medical history of Anxiety Disorder, Iron Deficiency anemia, and Depression. She presented with an acute onset of chest pain associated with heart burn, neck pain, dizziness, palpitations and anxiety that started a few hours prior to presentation. In the ER she was found to be in Atrial Fibrillation with a rate of 158. TSH was 5.51, Free T4 was 7.7. Troponin was <0.01. Cxray showed no acute cardiopulmonary findings. Covid and Flu Testing were negative. The patient was given a loading dose of Cardizem at 10 mg and placed on a Cardizem gtt. She was given Lovenox for anticoagulation. Echo will be ordered for the am and troponin will be trended due to report of symptoms prior to presentation. The plan of care was discussed with the patient and her in length and detail at bedside in the ER prior to her admission. Both verbalized understanding and agreement with the plan of care. Hospital Course Hospital Course Hospital Course: 56-year-old female with past medical history of Anxiety Disorder, Iron Deficiency Anemia, Depression presents with acute onset of chest pain associated with dizziness, neck pain, nausea, headache, denies shortness of air, found to be in Atrial Fibrillation - Atrial Fibrillation with Rapid Ventricular Response Denies history of Atrial Fibrillation. Started on diltiazem drip while in the ER. Responded well with conversion back to sinus rhythm. Transition to oral diltiazem. Plan to transition to long-acting diltiazem 120 mg daily. Echo obtained, preliminary ejection fraction preserved. Patient's [id number] Score 1. In the setting of paroxysmal A. fib, will hold on anticoagulation at this time. Recommend daily baby aspirin. Plan for close follow-up with cardiology for further management and evaluation. Lipid panel obtained, results still pending. Thyroid function normal. Troponins trended, remained undetectable - Iron Deficiency Anemia Reports a history, no longer takes iron supplementation. But reports to have a Microcytic Anemia concerning for iron deficiency. No sierra anemia on admission. Iron studies pending at discharge. - Anxiety Disorder: Continue home regime. Suspect this is an underlying culprit or risk factor for her A. fib. - Vape Tobacco Products: Counseled on the need for cessation Stable for discharge home. Close follow-up with cardiology. Exam Data for Last 24 hours Vital signs and Labs for Last 24 Hours: Temp Pulse Resp BP Pulse Ox 98.1 F 63 16 116/71 97 07/21/22 07:30 07/21/22 07:30 07/21/22 07:30 07/21/22 07:30 07/21/22 03:30 Laboratory Results - last 24 hr 07/20/22 19:42: WBC 7.0, RBC 4.74, Hgb 14.0, Hct 41.6, MCV 87.7, MCH 29.5, MCHC 33.6, RDW 13.4, Plt Count 378, MPV 7.3 L, Neut % (Auto) 40.5, Lymph % (Auto) 48.5, Hardy % (Auto) 5.5, Eos % (Auto) 4.2, Baso % (Auto) 1.3, Neut # (Auto) 2.8, Lymph # (Auto) 3.4, Hardy # (Auto) 0.4, Eos # (Auto) 0.3, Baso # (Auto) 0.1 07/20/22 19:42: Sodium 140, Potassium 3.6, Chloride 104, Carbon Dioxide 28, Anion Gap 11.6, BUN 14, Creatinine 0.80, Estimated Creat Clear 115, Estimated GFR 74, Est GFR ( Amer) 90, Glucose 104 H, Calcium 9.4, Total Bilirubin 0.4, AST 33, ALT 31, Alkaline Phosphatase 63, Troponin I < 0.01, Total Protein 7.8, Albumin 4.5, Globulin 3.3 H, Albumin/Globulin Ratio 1.4, TSH 5.51 H, Thyroxine (T4) 7.7 07/20/22 19:42: Magnesium 2.1 07/20/22 19:42: Triglycerides 171 H, Cholesterol 363 H, LDL Cholesterol Direct 186.71 H, VLDL Cholesterol 34, HDL Cholesterol 73 H, Cholesterol/HDL Ratio 5.0 H 07/20/22 19:50: SARS-CoV-2 (PCR) Not detected, Influenza A Untype (PCR) Not detected, Influenza Type B (PCR) Not detected 07/20/22 23:04: Troponin I < 0.01 07/21/22 01:46: Troponin I < 0.01 07/21/22 06:47: Troponin I < 0.01 07/21/22 06:47: WBC 5.3, RBC 4.05 L, Hgb 12.2 D, Hct 36.2 L, MCV 89.5, MCH
--- NOTE | 2022-07-21 21:01 | CA_ITS ---
APPROVED REPORT EXAM: Comprehensive 2D, Doppler, and color-flow Echocardiogram Corn Cutter: RONNELL Zavala, RVS Ht: 5 ft 3 in Wt: 215lbs BSA: 1.99 BP: 116/64 mmHg Indications: Afib, CP, Anxiety 2D Dimensions Aortic Root 2.89 cm LA Volume 52.50 mL Left Atrium 2.58 cm LA Volume Index 26.40 mL/m2 (M/F) 16-34 LVOT 2.05 cm (M/F) 1.5-2.5 M-Mode Dimensions RVDd 0.93 cm (0.9-2.6) LA Diam 3.39 cm (1.9-4.0) LVDd 4.72 cm (3.5-5.7) Ao Diam 2.87 cm (2.0-3.7) LVDs 3.11 cm (3.5-5.7) IVSd 0.89 cm (0.6-1.1) PWd 0.86 cm (0.6-1.1) EF (Teich) 63.10% EPSs 0.52 cm FS 34.10% EDV (Teich) 103.40 mL TAPSE 2.74 (<1.7) ESV (Teich) 38.20 mL LV Diastology E Decel Time 337.00 (160-240 msec) E/A Ratio 1.25 MED E' 9.60 (< 7 cm/sec) MED A' 9.20 cm/s E'/MED E' Ratio 6.52 (>14) LAT E' 14.00 (<10 cm/sec) LAT A' 9.40 cm/s E/LAT E' Ratio 4.47 (>14) Mitral Valve MV A Velocity 50.00 (40-130 cm/s) E/A Ratio 1.25 MV Decel. Time 337.00 (160-240 ms) MV Mean Gr. 1.50 (<2mmHg) Pulmonary Valve PV Peak Velocity 48.00 (50-150 cm/s) Tricuspid Valve TR P. Velocity 166.00 cm/s RAP Estimate 10.00 mmHg RVSP 21.10 mmHg Left Ventricle Left atrium is normal size, left ventricle is normal size, estimated ejection fraction 55% with no regional wall motion abnormality, diastolic parameters are inconclusive in the study. Right Ventricle Right atrium and right ventricle are normal size and contractility. Aortic Valve Aortic valve is minimally thickened and fibrosed there is no aortic stenosis or aortic insufficiency. Mitral Valve Mitral valve is grossly normal, there is mild mitral regurgitation. Tricuspid Valve Tricuspid valve is grossly normal, there is mild tricuspid regurgitation, tricuspid regurgitation jet velocity is inadequate for calculation of the right ventricular systolic pressure. Pulmonic Valve Pulmonic valve is poorly visualized. Great Vessels Aortic root is normal size. Inferior vena cava is normal size with normal inspiratory collapse. Pericardium No significant pericardial effusion noted. Conclusion 1. Normal left ventricular size, preserved left ventricular systolic function, estimated ejection fraction 55% with no regional wall motion abnormality, diastolic parameters are inconclusive in the study. 2. Mild mitral and tricuspid regurgitation. 3. No significant pericardial effusion noted. 4. Inferior vena cava is normal size with normal inspiratory collapse. Electronically signed by : Valente Tsang MD 07/22/2022 06:10:24
== END 2022-07-21 10:05 | disposition home or self-care (01) ==
LOC: ER 21:32 → ICU 07-21 07:32 → 2ND 07-21 23:09
PROVIDERS: Nurse Practitioner Family; Admitting Provider Internal Medicine Adolescent Medicine; Emergency Provider Emergency Medicine; PCP Family Medicine; Visit Provider Internal Medicine Adolescent Medicine
DX: I48.91 Unspecified atrial fibrillation (principal); D50.9 Iron deficiency anemia, unspecified; F41.9 Anxiety disorder, unspecified; F17.290 Nicotine dependence, other tobacco product, uncomplicated
CPT/HCPCS: 71045; 80053; 80061; 83735; 84436; 84443; 84484; 85007; 85025; 93005; 93306; 99285; C9803; G0378; U0003; U0005

== ENCOUNTER → 2022-07-28 09:07 | Outpatient (CLI) | payer OTHER, SELFPAY | PROVIDERS: PCP Family Medicine; Visit Provider Nurse Practitioner | DX: R06.09 Other forms of dyspnea (principal); R07.89 Other chest pain; R00.2 Palpitations; I48.0 Paroxysmal atrial fibrillation; R60.9 Edema, unspecified; F41.9 Anxiety disorder, unspecified; E66.9 Obesity, unspecified; Z68.35 Body mass index [BMI] 35.0-35.9, adult | CPT/HCPCS: 93270 ==

== ENCOUNTER → 2022-08-05 07:15 | Outpatient (CLI) | payer OTHER, SELFPAY ==
--- NOTE | 2022-08-05 07:16 | NM_ITS ---
APPROVED REPORT Exam: Nuclear Stress Test Indication: Chest pain, SOB, Afib, High cholesterol, Family history Patient Location: Outpatient Stress Tech: Felicity Soriano [place] Tech:Na Thomson, ARRT, RT (R)(N) Ht: 5 ft 4 in Wt: 200 lbs Bra Size: 36C HR: 77 bpm BP: 122/77 mmHg BSA: 1.96 m2 TID: 1.22 BMI: 34.3 History: Chest pain, SOB, Afib, High cholesterol, Family history Procedure: Patient exercised on Gabriel protocol 5:32 minutes and sec, resting heart rate 77 bpm, resting blood pressure 122/77 mmHg, with exercise maximum heart rate achived was 169 bpm which is 103 % of the maximum predicted heart rate and blood pressure was 188/75 mmHg. Test was stopped due to SOB. Patient denied any complaint of chest pain. Patient has Adequate exercise capacity, achieved 7.0 METs of workload on treadmill, the blood pressure response to exercise was Adequate. Electrocardiogram Resting electrocardiogram shows sinus rhythm low-voltage QRS, with exercise there is less than 1.[address] segment depression noted from the baseline EKG. The EKG portion of the exercise Myoview is negative for ischemia. Cardiac Stress and Resting SPECT Images: Cardiac Stress and Resting SPECT images were obtained using technetium 99m Myoview 30.6 mCi stress and 10.45 mCi at rest. Gated SPECT for analysis of segmental wall motion and calculation of the ejection fraction also done. Prone images were also obtained. Cardiac stress and resting SPECT images show uniform myocardial activity without segmental perfusion abnormality, computer derived ejection fraction is 54% with no regional wall motion abnormality, right ventricle is normal size and contractility. Conclusion: 1. The EKG portion of the exercise Myoview is negative for ischemia. Patient has adequate exercise capacity achieved 7 METS of workload on treadmill, the blood pressure response to exercise was adequate, patient complained of mild chest pain with exercise with no EKG changes. 2. No scintigraphic evidence of reversible ischemia seen, computer derived ejection fraction is 54% with no regional wall motion abnormality, right ventricle is normal size and contractility. Electronically signed by : Valente Tsang MD 08/06/2022 06:27:07
--- NOTE | 2022-08-05 09:37 | HMH.ITSHM ---
Current Home Medications as stated by this patient Olga Villanueva or off premise service representative. []MELOXICAM DILTIAZEM CETIRIZINE
--- NOTE | 2022-08-05 09:57 | CA_ITS ---
APPROVED REPORT Exam: Exercise Treadmill Technologist: Felicity Soriano Ht: 5 ft 4 in Wt: 204 lbs BSA: 1.97 m2 HR: 59 bpm BP: 122/77 mmHg Indications: Shortness of Air, chest pain Medical History Medications: MeLOXICAM,,,,, ZYRTEC,,,,, DilTiazem,,,,, Stress Test Details Test: Manual Treadmill HR Resting HR: 77 bpm Max Heart Rate (APMHR): 164.224300 bpm Max HR Achieved: 169 bpm Target HR (85% APMHR): 139.993682 bpm % of APMHR: 103.05 Recovery HR: 85 bpm BP Resting BP: 122.0/77.0 mmHg Max BP: 188.0/75.0 mmHg Recovery BP: 140.0/76.0 mmHg ECG Resting ECG: Normal sinus rhythm, low voltage QRS Clinical Exercise duration: 05:32 min Highest Stage Achieved: Exercise capacity: 7.0 METs Stress ECG Conclusion Patient exercised 5:32 seconds on Gabriel Protocol. Test stopped due to shortness of air, fatigue. Symptoms: Shortness of air, mild chest discomfort. Arrhythmias/Ectopy: Occasoinal PVC. ST-T Changes: Within normal ST response to exercise. Conclusion: Mild chest pain with no diagnostic EKG changes. Myoview images reported separately. Test Summary REST . . . . . . . Sitting REST . . . . . . . Standing REST 11:04 0.0 0.0 77 . 122/ 77 . . Stage 1 01:00 10.0 1.7 118 . . . . Stage 1 02:00 10.0 1.7 132 . . . . Stage 1 03:00 10.0 1.7 132 . 188/ 75 . . Stage 2 01:00 12.0 2.5 149 . . . . Stage 2 . . . . . . . Myoview Injected Stage 2 02:00 12.0 2.5 158 . . . . Stage 2 . . . . . . . Protocol changed to Manual Treadmill Stage 2 02:32 12.0 0.3 168 . . . Stop exercise at 05:32 RECOVERY 01:00 0.0 0.0 146 . . . . RECOVERY 02:00 0.0 0.0 104 . . . . RECOVERY 03:00 0.0 0.0 100 . 160/ 70 . . RECOVERY 04:00 0.0 0.0 89 . 148/ 64 . . RECOVERY 05:00 0.0 0.0 85 . 148/ 64 . . RECOVERY 05:38 0.0 0.0 81 . 140/ 76 . . Electronically signed by : Valente Tsang MD 08/06/2022 06:24:26
== END ==
PROVIDERS: PCP Family Medicine; Visit Provider Nurse Practitioner
DX: R06.09 Other forms of dyspnea (principal); R07.89 Other chest pain; R00.2 Palpitations; I48.0 Paroxysmal atrial fibrillation; F41.9 Anxiety disorder, unspecified; E66.9 Obesity, unspecified; Z68.35 Body mass index [BMI] 35.0-35.9, adult
CPT/HCPCS: 78452; 93017; A9502

== ENCOUNTER 2022-12-19 08:20 | Outpatient (CLI) | payer OTHER, SELFPAY ==
[2022-12-19 09:09] VITALS: BMI 34.0
[2022-12-19 09:29] LABS: Chloride 96 mmol/L (98-107); Sodium 135 mmol/L (136-145)
[2022-12-19 09:32] LABS: Blood Urea Nitrogen 12 mg/dl (7-17); Calcium 9.5 mg/dl (8.4-10.2); Carbon Dioxide 31 mmol/L (22.0-30.0); Creatinine Clearance Estimated 126 mL/min (50-200); Estimated Glomerular Filt Rate 86 ml/min (>60); GFR (African American) 104 ML/MIN (>60); Glucose 89 mg/dl (74-100)
[2022-12-19 09:50] VITALS: BP 147/77; PULSE 53; RESP 17; O2SAT 100
--- NOTE | 2022-12-19 10:17 | PC.NURSE ---
patient very anxious. during CTA pt iv began to leak and stated she felt too anxious to repeat the contrast and stated she had family members tell her not to get the contrast twice. pt was educated on the contrast again. but pt decline continue with the cta and will see what the doctors have to say.
== END 2022-12-19 10:15 | disposition home or self-care (01) ==
LOC: RAD 08:22
PROVIDERS: PCP Family Medicine; Visit Provider Physician Assistant
DX: R07.89 Other chest pain (principal)
CPT/HCPCS: 80048

== ENCOUNTER 2023-05-04 20:33 | Observation (INO) | payer SELFPAY ==
[2023-05-04] VITALS (14 sets, daily range): BP systolic 95–161; BP diastolic 57–105; PULSE 68–138; RESP 15–20; TEMP 36.6; O2SAT 93–98; BMI 35.4
--- NOTE | 2023-05-04 20:30 | ECG_ITS ---
APPROVED REPORT Exam: Resting ECG HR:162 bpm ECG Measurements Heart Rate 162 AXES QRSd 94 QRS -18 QT 255 T 93 QTc 345 Conclusion ATRIAL FIBRILLATION WITH RAPID VENTRICULAR RESPONSE VOLTAGE CRITERIA FOR LVH [MEETS CRITERIA IN ONE OF: R(aVL), S(V1), R(V5), R(V5/V6)+S(V1)] NONSPECIFIC ST & T-WAVE ABNORMALITY CRITICAL TEST RESULT UNCONFIRMED REPORT Electronically signed by : Donaldo Pa MD 05/05/2023 19:24:52
--- NOTE | 2023-05-04 20:37 | XR_ITS ---
PROCEDURE INFORMATION: Exam: XR Chest Exam date and time: 05/04/2023 9:02 PM Age: 57 years old Clinical indication: Sternal or substernal pain; Additional info: Tachycardia, cp TECHNIQUE: Imaging protocol: Radiologic exam of the chest. Views: 1 view. COMPARISON: CR XR CHEST PORTABLE 07/20/2022 8:17 PM FINDINGS: Lungs: Unremarkable. No consolidation. Pleural spaces: Unremarkable. No pleural effusion. No pneumothorax. Heart/Mediastinum: Unremarkable. No cardiomegaly. Bones/joints: Unremarkable. IMPRESSION: Stable chest x-ray with no acute disease.
[2023-05-04 20:57] LABS: Basophils # 0.1 K/mm3 (0-0.2); Basophils % 0.6 % (0.1-2.0); Eosinophils # 0.4 K/mm3 (0.0-0.4); Eosinophils % 4.1 % (0.1-12.0); Hemoglobin 14.4 g/dL (12.2-16.2); Lymphocytes # 3.6 K/mm3 (0.7-4.5); Lymphocytes % 34.2 % (10-50); Mean Corpuscular HGB Conc 35.1 g/dL (31.8-35.4); Mean Corpuscular Hemoglobin 31.2 pg (27.0-31.2); Mean Platelet Volume 7.3 fl (7.4-10.4); Monocytes # 0.5 K/mm3 (0.1-1.0); Monocytes % 4.9 % (1.7-9.3); Neutrophils # 5.9 K/mm3 (1.8-7.8); Neutrophils % 56.1 % (37.0-80.0); Platelet Count 330 K/mm3 (142-424); Red Cell Distribution Width 13.1 % (11.5-17.5); White Blood Count 10.4 K/mm3 (4.8-10.8)
[2023-05-04 21:04] LABS: Alanine Aminotransferase 29 U/L (12-78); Albumin Level 5.1 g/dl (3.5-5.0); Albumin/Globulin Ratio 1.3 (1.1-1.8); Alkaline Phosphatase 61 U/L (38-126); Anion Gap 13.5 mEq/L (5-15); Aspartate Amino Transferase 37 U/L (14-36); Bilirubin,Total 0.5 mg/dl (0.2-1.3); Blood Urea Nitrogen 12 mg/dl (7-17); Calcium 9.9 mg/dl (8.4-10.2); Carbon Dioxide 28 mmol/L (22.0-30.0); Chloride 101 mmol/L (98-107); Creatinine Clearance Estimated 111 mL/min (50-200); Estimated Glomerular Filt Rate 74 ml/min (>60); GFR (African American) 89 ML/MIN (>60); Glucose 118 mg/dl (74-100); Potassium 3.5 mmoL/L (3.5-5.1); Sodium 139 mmol/L (136-145); Total Protein,Serum 9.1 g/dl (6.3-8.2)
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
[2023-05-04 21:22] LABS: Troponin I < 0.01 ng/ml (0.00-0.034)
--- NOTE | 2023-05-04 21:40 | PC.NURSE ---
patient assisted to bathroom and back to bed
[2023-05-05] VITALS (18 sets, daily range): BP systolic 103–156; BP diastolic 56–84; PULSE 69–110; RESP 12–20; TEMP 36.6–36.9; O2SAT 93–100; BMI 35.6
[2023-05-05 00:36] LABS: Troponin I < 0.01 ng/ml (0.00-0.034)
--- NOTE | 2023-05-05 01:10 | PC.NURSE ---
call placed to dr laurent. waiting on return call
--- NOTE | 2023-05-05 01:16 | PC.NURSE ---
message left with dr laurent's significant other for return call.
--- NOTE | 2023-05-05 01:41 | PC.NURSE ---
on phone with dr laurent
--- NOTE | 2023-05-05 01:54 | PC.NURSE ---
Admitting notified of admission. Hospitalist, 217 SD, OBS, Afib with RVR
--- NOTE | 2023-05-05 02:25 | PC.NURSE ---
Patient arrived to floor via stretcher at 02:23.
[2023-05-05 02:31] LABS: Troponin I < 0.01 ng/ml (0.00-0.034)
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
[2023-05-05 03:28] LABS: PTT Heparin (inpatient only) 29.1 Seconds (23.6-34.0)
--- NOTE | 2023-05-05 04:22 | PC.NURSE ---
Pt admitted on diltiazem 5 mg/hr, HR 70-80 bpm. AOx4, standby assist, assisted to void. Oriented pt and to unit and educated on current POC, dilt gtt, cardiac monitoring, and fall precautions; pt and verbalized understanding. Admission assessment completed. Heparin gtt started at 1400 u/hr (28 mL/hr), educated pt on purpose and routine labwork, pt verbalized. On 0400 assessment, HR irregular at 80-110 bpm, increased dilt gtt to 10 mg/hr. Pt tolerating well, denies any acute needs at this time.
--- NOTE | 2023-05-05 06:31 | PC.NURSE ---
Pt regular with P waves on monitor. JOCELYNE Messina asked to decrease dilt gtt to 5 mg/hr. Pt tolerating well at this time.
--- NOTE | 2023-05-05 07:42 | P.CONPHA_ITS ---
[facility] Pharmacy Heparin Dosing Demographic Data Admission date:: 05/05/23 Date: 05/05/23 Time: 07:42 Allergies Allergy/AdvReac Type Severity Reaction Status Date / Time promethazine [From Phenergan] Allergy Verified 12/30/22 08:43 Height: 1.6 m Weight: 91.342 kg Indication Medication therapy:: Heparin Current Indications:: MEDIUM DOSE PROTOCOL - ATRIAL FIBRILLATION Current Active Problems (Updated 05/05/23 @ 11:47 by Joanna Avila APRN) PAF (paroxysmal atrial fibrillation) (Acute) Anxiety disorder (Chronic) Vapes nicotine containing substance (Chronic) Class 2 obesity (Chronic) Palpitations (Acute) Atrial fibrillation with RVR (Acute) CVA?: No Bleeding problem?: No Kidney disease?: No RI?: No Additional History:: ATRIAL FLUTTER, PAROXYSMAL ATRIAL FIBRILLATION, OBESITY Desired PTT range:: 50-75 seconds Comments:: BASELINE PTT = 29.1 SECONDS Labs Anticoagulation Lab Results:: 05/04/23 20:36 Hgb 14.4 Hct 41.0 Plt Count 330 Monitoring Dose Monitor 1: Date: 05/05/23 Time: 03:05 PTT Result:: 29.1 SECONDS (BASELINE) Infusion Rate:: STARTED HEPARIN DRIP AT 1400 UNITS/HOUR = 28 ML/HOUR AND BOLUSED 5000 UNITS HEPARIN IV ONCE. Dose Monitor 2: Date: 05/05/23 Time: 09:55 PTT Result:: 92.3 SECONDS Infusion Rate:: DECREASE HEPARIN DRIP RATE TO 1300 UNITS/HOUR = 26 ML/HOUR. Core Measures Is INR > or = 2 at discharge?: No Most Recent Labs:: Laboratory Results - last 24 hr 05/04/23 20:36: WBC 10.4, RBC 4.60, Hgb 14.4, Hct 41.0, MCV 89.0, MCH 31.2, MCHC 35.1, RDW 13.1, Plt Count 330, MPV 7.3 L, Neut % (Auto) 56.1, Lymph % (Auto) 34.2, [place] % (Auto) 4.9, Eos % (Auto) 4.1, Baso % (Auto) 0.6, Neut # (Auto) 5.9, Lymph # (Auto) 3.6, [place] # (Auto) 0.5, Eos # (Auto) 0.4, Baso # (Auto) 0.1, Sodium 139, Potassium 3.5, Chloride 101, Carbon Dioxide 28, Anion Gap 13.5, BUN 12, Creatinine 0.80, Estimated Creat Clear 111, Estimated GFR 74, Est GFR ( Amer) 89, Glucose 118 H, Calcium 9.9, Total Bilirubin 0.5, AST 37 H, ALT 29, Alkaline Phosphatase 61, Troponin I < 0.01, Total Protein 9.1 H D, Albumin 5.1 H, Globulin 4.0 H, Albumin/Globulin Ratio 1.3 05/04/23 23:45: Troponin I < 0.01 05/05/23 01:42: Troponin I < 0.01 05/05/23 03:05: APTT 29.1 If INR was < than 2.0 why was therapy stopped?: PATIENT D/C HOME, PATIENT OPTED FOR ONLY ASPIRIN 81 MG DAILY PER CARDIOLOGY Were Heparin and Warfarin started on the same day?: No If not, why?: PATIENT OPTED FOR ONLY ASPIRIN 81 MG DAILY PER CARDIOLOGY NOTE
--- NOTE | 2023-05-05 07:43 | ECG_ITS ---
APPROVED REPORT Exam: Resting ECG HR:70 bpm ECG Measurements Heart Rate 70 AXES HI 192 P 57 QRSd 93 QRS -21 QT 378 T 29 QTc 399 Conclusion SINUS RHYTHM BORDERLINE LEFT AXIS DEVIATION [QRS AXIS < -20] MODERATE VOLTAGE CRITERIA FOR LVH, CONSIDER NORMAL VARIANT [MEETS CRITERIA IN ONE OF: R(aVL), S(V1), R(V5), R(V5/V6)+S(V1)] BORDERLINE ECG UNCONFIRMED REPORT Electronically signed by : Donaldo Pa MD 05/05/2023 19:23:11
--- NOTE | 2023-05-05 08:21 | PC.NURSE ---
notified MD Hanley that pt converted to NSR at approximately 0600, EKG taken at 0639 also shows NSR, HR 60-80's, diltiazem drip on at 5mg/hr, to order home dose of PO dilt and d/c drip
--- NOTE | 2023-05-05 10:45 | PC.NURSE ---
stopped dilt drip per protocol one hour after PO dilt given
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
[2023-05-05 12:49] LABS: PTT Heparin (inpatient only) 92.3 Seconds (23.6-34.0)
--- NOTE | 2023-05-05 15:55 | HMH.PHAINT1 ---
Pharmacy Intervention Comments: DISCHARGE MEDICATION COUNSELING PROVIDED. DISCUSSED STOPPING DILTIAZEM 120 MG AND STARTING DILTIAZEM 180 MG (WATCH FOR DIZZINESS, LIGHTHEADEDNESS WITH DOSE INCREASE) AND START METOPROLOL SUCCINATE 25 MG (DAILY, BETA TWYLA FOR HEART RATE, DIZZINESS, LIGHTHEADEDNESS, SLOWED HEART RATE, FATIGUE POSSIBLE). PATIENT DID ASK IF SHE SHOULD CONTINUE TO TAKE HER DILTIAZEM AT BEDTIME AND I ADVISED HER THAT WOULD BE APPROPRIATE. NO FURTHER QUESTIONS AT THIS TIME.
--- NOTE | 2023-05-05 16:27 | EXP.DC.SUM ---
General Admission date:: 05/05/23 Discharge date: 05/05/23 HPI HPI HPI: 57 year old female presented to the ED for c/o palpations. PMHX of a fib, obesity, vaping, and anxiety. Pt states she was dx with a fib in July. Her A fib has been controlled with oral diltiazem. She takes aspirin 81 mg daily. Upon ED arrival pt was HR was in 130's with a fib RVR. She states she has been under alot of stress with her new job. She states the same thing happened in July, her palpations started from stress. Denies any recent illness, CP, or dyspnea. The ED physician attempted to convert the pt to NSR with her home p.o dose of diltiazem. Then pt received 2 additional bolus of IV diltiazem. The pt has not converted back to nsr. She was started on a diltiazem gtt. The ED physician consulted Cardiology who recommend an amiodarone bolus. Despite one 300 mg amiodarone bolus pt is still in a fib with a controlled rate. The ED physician consulted the hospitalist team for further medical management. The pt arrives to the medical floor with the diltiazem gtt in place. She will remain NPO until cardiology consult in the morning. She will be started on a heparin gtt. She was given lorazepam twice in the ED for her anxiety. Hospital Course Hospital Course Hospital Course: Please patient is a 57-year-old female who presented to hospital due to concern for palpitations. Patient was admitted for atrial fibrillation with RVR. Patient has not been compliant with medications. Patient does not have health insurance. Atrial fibrillation RVR-resolved Anxiety- well controlled Patient was instructed to follow-up with PCP and inventory associate and driver as outpatient Patient was started on metoprolol as well as Cardizem dose was increased from 1 20-1 80. Today Patient has already established inventory associate and driver, patient was instructed to make appointments for follow-up DVT prophylaxis-on Lovenox Patient being on aspirin for A-fib Exam Data for Last 24 hours Vital signs and Labs for Last 24 Hours: Temp Pulse Resp BP Pulse Ox O2 Del Method 98.5 F 80 20 121/65 94 L Room Air 05/05/23 12:00 05/05/23 16:00 05/05/23 16:00 05/05/23 16:00 05/05/23 16:00 05/05/23 16:00 Laboratory Results - last 24 hr 05/04/23 20:36: WBC 10.4, RBC 4.60, Hgb 14.4, Hct 41.0, MCV 89.0, MCH 31.2, MCHC 35.1, RDW 13.1, Plt Count 330, MPV 7.3 L, Neut % (Auto) 56.1, Lymph % (Auto) 34.2, [place] % (Auto) 4.9, Eos % (Auto) 4.1, Baso % (Auto) 0.6, Neut # (Auto) 5.9, Lymph # (Auto) 3.6, [place] # (Auto) 0.5, Eos # (Auto) 0.4, Baso # (Auto) 0.1, Sodium 139, Potassium 3.5, Chloride 101, Carbon Dioxide 28, Anion Gap 13.5, BUN 12, Creatinine 0.80, Estimated Creat Clear 111, Estimated GFR 74, Est GFR ( Amer) 89, Glucose 118 H, Calcium 9.9, Total Bilirubin 0.5, AST 37 H, ALT 29, Alkaline Phosphatase 61, Troponin I < 0.01, Total Protein 9.1 H D, Albumin 5.1 H, Globulin 4.0 H, Albumin/Globulin Ratio 1.3 05/04/23 23:45: Troponin I < 0.01 05/05/23 01:42: Troponin I < 0.01 05/05/23 03:05: APTT 29.1 05/05/23 10:10: APTT 92.3 H* I & O for Last 24 hours: Intake & Output 05/02/23 05/03/23 05/04/23 05/05/23 23:59 23:59 23:59 23:59 Intake Total 166.833 / 166.833 Output Total 1100 / 1100 Balance -933.167 / -933.167 Weight 90.718 kg 91.342 kg Constitutional Constitutional: no acute distress *Routine HEENT Exam Head: Present normocephalic Eye: Present EOMI and PERRL ENT: Present mucous membranes moist *Routine Neck Exam Neck: Present supple; Absent lymphadenopathy *Routine Respiratory Exam Respiratory: Present CTA bilaterally *Routine Cardiovascular Exam Cardiovascular: Present RRR *Routine Abdominal Exam Abdominal: Present soft and normoactive bowel sounds; Absent tenderness *Routine Extremities Exam Extremities: Absent cyanosis, clubbing or edema *Routine Skin Exam Skin: Present warm; Absent rash *Routine Neurological Exam Neurological: Present alert and oriented X3 Results Data Completed and Pend
--- NOTE | 2023-05-05 16:30 | PC.NURSE ---
removed 2 20G Lien CONDE
--- NOTE | 2023-05-06 10:39 | CARE MANAGER ---
CM called and spoke with patient regarding recent discharge. Patient stated that she is really tired and trying to adjust to new medication. She requested a work excuse for the remainder of the week. I contacted cardiology and excuse will be left with ER registration. Patient had no other concerns at time of call.
== END 2023-05-05 16:52 | disposition home or self-care (01) ==
LOC: ER 05-05 01:47 → 2ND 05-05 01:55
PROVIDERS: Emergency Medicine; Nurse Practitioner Critical Care Medicine; Admitting Provider Internal Medicine Adolescent Medicine; Emergency Provider Emergency Medicine; PCP Family Medicine; Visit Provider Internal Medicine Adolescent Medicine
DX: I48.0 Paroxysmal atrial fibrillation; F17.210 Nicotine dependence, cigarettes, uncomplicated; Z79.899 Other long term (current) drug therapy; F41.9 Anxiety disorder, unspecified; E66.9 Obesity, unspecified; Z68.35 Body mass index [BMI] 35.0-35.9, adult; Z91.128 Patient's intentional underdosing of medication regimen for other reason
CPT/HCPCS: 36415; 71045; 80053; 84484; 85025; 85730; 93005; 99285; G0378; J0282; J3475

== ENCOUNTER 2023-08-19 09:27 | Outpatient (CLI) | payer OTHER, SELFPAY ==
[2023-08-19 10:00] LABS: Basophils % 0.9 % (0.1-2.0); Eosinophils # 0.3 K/mm3 (0.0-0.4); Eosinophils % 5.2 % (0.1-12.0); Hemoglobin 13.4 g/dL (12.2-16.2); Lymphocytes # 1.9 K/mm3 (0.7-4.5); Lymphocytes % 39.4 % (10-50); Mean Corpuscular HGB Conc 39.4 g/dL (31.8-35.4); Mean Corpuscular Hemoglobin 34.9 pg (27.0-31.2); Mean Corpuscular Volume 88.4 fl (81-99); Mean Platelet Volume 6.9 fl (7.4-10.4); Monocytes # 0.3 K/mm3 (0.1-1.0); Monocytes % 5.8 % (1.7-9.3); Neutrophils # 2.3 K/mm3 (1.8-7.8); Neutrophils % 48.8 % (37.0-80.0); Platelet Count 288 K/mm3 (142-424); Red Blood Count 3.85 M/mm3 (4.20-5.40); Red Cell Distribution Width 13.1 % (11.5-17.5); White Blood Count 4.8 K/mm3 (4.8-10.8)
[2023-08-19 10:48] LABS: Alanine Aminotransferase 23 U/L (12-78); Albumin Level 4.3 g/dl (3.5-5.0); Alkaline Phosphatase 53 U/L (38-126); Anion Gap 8.1 mEq/L (5-15); Aspartate Amino Transferase 27 U/L (14-36); Bilirubin,Indirect 0.5 mg/dL (0.0-0.9); Bilirubin,Total 0.5 mg/dl (0.2-1.3); Bilirubin,Unconjugated 0.5 mg/dL (0.0-1.1); Blood Urea Nitrogen 12 mg/dl (7-17); Calcium 9.3 mg/dl (8.4-10.2); Carbon Dioxide 30 mmol/L (22.0-30.0); Chloride 106 mmol/L (98-107); Chol/HDL Ratio 5.5 (1-3.5); Cholesterol 305 mg/dl (140-200); Estimated Glomerular Filt Rate 86 ml/min (>60); GFR (African American) 104 ML/MIN (>60); Glucose 96 mg/dl (74-100); HDL Cholesterol 55 mg/dl (40-60); Magnesium 2.1 mg/dl (1.6-2.3); Potassium 4.1 mmoL/L (3.5-5.1); Sodium 140 mmol/L (136-145); Total Protein,Serum 6.9 g/dl (6.3-8.2); Triglycerides 122 mg/dl (30-150); VLDL Cholesterol 24 mg/dL (0-40)
[2023-08-19 10:58] LABS: Direct LDL Cholesterol 174.29 mg/dL (100-129)
[2023-08-19 11:03] LABS: Free T4 (Free Thyroxine) 0.77 ng/dl (0.78-2.19)
[2023-08-19 11:18] LABS: Thyroid Stimulating Hormone 3.81 uIU/mL (0.465-4.68)
== END 2023-08-19 23:59 ==
LOC: LAB 09:27
PROVIDERS: PCP Family Medicine; Visit Provider Nurse Practitioner
DX: F41.1 Generalized anxiety disorder (principal); I48.0 Paroxysmal atrial fibrillation; E66.9 Obesity, unspecified; Z68.35 Body mass index [BMI] 35.0-35.9, adult; Z79.899 Other long term (current) drug therapy
CPT/HCPCS: 36415; 80048; 80061; 80076; 83735; 84439; 84443; 85025

== ENCOUNTER 2024-06-01 10:55 | Emergency (ER) | payer SELFPAY ==
--- NOTE | 2024-06-01 11:04 | ECG_ITS ---
APPROVED REPORT Exam: Resting ECG HR:72 bpm ECG Measurements Heart Rate 72 AXES SC 165 P 60 QRSd 94 QRS -24 QT 351 T 45 QTc 375 Conclusion Sinus rhythm Left axis deviation Electronically signed by : TAO FERRIS, 06/01/2024 13:16:33
[2024-06-01 11:08] VITALS: BP 128/85; PULSE 78; RESP 16; TEMP 36.6; O2SAT 99; BMI 33.5
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
[2024-06-01 12:29] VITALS: BP 102/69; PULSE 60; RESP 13; TEMP 36.7
[2024-06-01 13:45] LABS: HIV (1&2) Antibody Rapid NONREACTIVE (NONREACTIVE)
[2024-06-02 08:22] LABS: HCV Ab Non Reactive (Non Reactive)
== END 2024-06-01 12:28 | disposition home or self-care (01) ==
PROVIDERS: Emergency Provider Emergency Medicine; PCP Family Medicine
DX: R20.8 Other disturbances of skin sensation (principal); M79.661 Pain in right lower leg
CPT/HCPCS: 86803; 87389; 93005; 99283

== ENCOUNTER 2024-10-19 07:55 | Emergency (ER) | payer OTHER, SELFPAY ==
--- NOTE | 2024-10-19 08:04 | PC.NURSE ---
manual bp 150/90 smith
--- NOTE | 2024-10-19 08:06 | ECG_ITS ---
APPROVED REPORT Exam: Resting ECG HR:69 bpm ECG Measurements Heart Rate 69 AXES ND 176 P 70 QRSd 92 QRS -1 QT 364 T 64 QTc 383 Conclusion SINUS RHYTHM NORMAL ECG UNCONFIRMED REPORT Electronically signed by : MEHUL JULIAN, 10/20/2024 05:14:58
[2024-10-19 08:08] VITALS: BP 156/87; PULSE 78; RESP 19; TEMP 36.8; O2SAT 97; BMI 35.6
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
--- NOTE | 2024-10-19 08:27 | PC.NURSE ---
trauma protocol followed, per dr ortiz no trauma alert needed to call overhead.
--- NOTE | 2024-10-19 08:29 | PC.NURSE ---
FSBS [address] Kathleen
[2024-10-19 08:35] LABS: POC Glucose,Bedside 102 (70-110)
[2024-10-19 08:50] VITALS: BP 127/72; PULSE 65; O2SAT 97
[2024-10-19] MEDS: KETOROLAC 30MG/ML VIAL 15 MG IV (08:51)
--- NOTE | 2024-10-19 09:25 | PC.NURSE ---
c collar removed per dr ortiz
[2024-10-19 09:42] VITALS: BP 120/80; PULSE 82; RESP 13; TEMP 36.9
[2024-10-19] MEDS: LIDOCAINE 5% TRANSDERMAL PATCH 1 EACH TD (09:43)
== END 2024-10-19 09:46 | disposition home or self-care (01) ==
PROVIDERS: Emergency Provider Emergency Medicine; PCP Family Medicine
DX: S16.1XXA Strain of muscle, fascia and tendon at neck level, initial encounter (principal); M54.6 Pain in thoracic spine; M25.552 Pain in left hip; M25.512 Pain in left shoulder; M25.511 Pain in right shoulder; M54.9 Dorsalgia, unspecified; M54.2 Cervicalgia; F17.210 Nicotine dependence, cigarettes, uncomplicated; V89.2XXA Person injured in unspecified motor-vehicle accident, traffic, initial encounter; Y93.89 Activity, other specified; Y92.410 Unspecified street and highway as the place of occurrence of the external cause
CPT/HCPCS: 72125; 72128; 73502; 82962; 93005; 96374; 99284; J1885

== ENCOUNTER 2025-02-09 09:56 | Outpatient (CLI) | payer OTHER, SELFPAY ==
--- OUTSIDE RECORDS SUMMARY | 2025-02-03 07:49 | XMS_ITS | Encounter Summary ---
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 Reports she went to urgent care a few days ago and was told she has a viral infection Encounter Details Date Type Department Care Team (Late st Contact Info) Description 02/03/2025 7:49 AM EDT - 02/03/2025 10:07 AM EDT Emergency [facility] Emergency Department [address] [place] [address] Madi Adames MD [facility] [place] [address] Diarrhea of presumed infectious origin (Primary Dx); Hypokalemia Discharge Disposition: Home or Self Care Social History Tobacco Use Types Packs/Day Years Used Date Smoking Tobacco: Every Day Smokeless Tobacco: Never Tobacco Cessation:Ready to Q uit: Not Asked; Counseling Given: Not Answered Comments:vapes Alcohol Use Standard Drinks/Week Comments Not Currently 0 (1 standard drink = 0.6 oz pur e alcohol) Comments Unknown Sex and Gender Information Value Date Recorded Sex Assigned at Not on file Legal Sex Female 7:45 PM CDT Gender Identity Not on file Sexual Orientation Not on file documented as of this encounter Last Filed Vital Signs Vital Sign Reading Time Taken Comments Blood Pressure 119/66 02/03/2025 9:55 AM EDT Pulse 70 02/03/2025 10:07 AM EDT Temperature 37.1 C (98.8 F) 02/03/2025 7:54 AM EDT Respiratory Rate 14 02/03/2025 10:07 AM EDT Oxygen Saturation 98% 02/03/2025 10:07 AM EDT Inhaled Oxygen Concentration - - Weight 90.7 kg (200 lb) 02/03/2025 7:54 AM EDT Height 162.6 cm (5' 4 ) 02/03/2025 7:54 AM EDT Body Mass Index 34.33 02/03/2025 7:54 AM EDT documented in this encounter Discharge Instructions * Attachments The following attachments cannot be sent through Care Everywhere. * Diarrhea Adult [id number] (Colombian) documented in this encounter Medications at Time of Discharge loperamide (IMODIUM) 2 mg capsule Take 1 capsule (2 mg total) by mouth 4 (four) times daily as needed for diarrhea for up to 2 days. 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 She states she has had symptoms for the past 3 days. Watery stool. She has not had any recent travel antibiotic use. No fevers or chills. She has not noted any meals that she ate before. No undercooked meals and did not eat out.She has had abdominal cramping. Went to urgent care 2 days ago and told it was likely viral. They did not check labs. Patient History Past Medical History: Diagnosis Date ??? Afib (HCC) Past Surgical History: Procedure Laterality Date ??? TUBAL LIGATION No family history on file. Social History Tobacco Use ??? Smoking status: Every Day ??? Smokeless tobacco: Never ??? Tobacco comments: vapes Substance Use Topics ??? Alcohol use: Not Currently I reviewed the HPI, ROS and PFSH documentation recorded by others in the medical record and supplemented my note as needed. Review of Systems Review of Systems Physical Exam ED Triage Vitals [02/03/25 0754] Encounter Vitals Group BP 135/76 Systolic BP Percentile Diastolic BP Percentile Pulse 83 Resp 20 Temp 98.8 ??F (37.1 ??C) Temp src Oral SpO2 97 % Weight 90.7 kg (200 lb) Height 1.626 m (5' 4 ) Head Circumference Peak Flow Pain Score Six Pain Loc Pain Education Exclude from Growth Chart Physical Exam Vitals and nursing note reviewed. Constitutional: General: She is not in acute distress. Appearance: She is not ill-appearing or toxic-appearing. HENT: Head: Normocephalic. Cardiovascular: Rate and Rhythm: Normal rate and regular rhythm. Pulmonary: Effort: Pulmonary effort is normal. Breath sounds: Normal breath sounds. Abdominal: General: Abdomen is flat. Palpations: Abdomen is soft. Comments: Mild generalized tenderness without rebound or guarding. Skin: General: Skin is warm and dry. Neurological: Mental Status: She is alert. Neurological Exam Mental Status Alert. Ortho Exam ED Course & MDM Medications potassium chloride (KLOR-CON) ER tablet 40 mEq (has no administration in time range) sodium chloride 0.9% (NS) bolus (1,000 mLs intravenous New Bag 02/03/25 0823) Results for orders placed or performed during the hospital encounter of 02/03/25 CBC with Auto Diff Result Value Ref Range WBC 7.2 4.8 - 10.8 K/??L RBC 4.21 3.50 - 5.20 M/??L Hemoglobin 12.6 11.7 - 15.8 GM/DL Hematocrit 35.0 35.0 - 47.0 % MCV 83 81 - 101 fL MCH 29.9 27.0 - 34.0 pg MCHC 36.0 32.0 - 36.0 GM/DL RDW 12.4 11.5 - 14.5 % Platelets 233 150 - 400 K/CU MM MPV 8.7 (L) 9.4 - 12.4 fL Nucleated Red Blood Cell 0.0 0 - 0.2 % NRBC Absolute <0.01 0 - 0.012 K/ul Comprehensive metabolic panel Result Value Ref Range Sodium 131 (L) 136 - 145 meq/L Potassium 3.1 (L) 3.5 - 5.1 meq/L Chloride 97 (L) 98 - 107 meq/L CO2 28 21 - 32 meq/L Calcium 8.7 8.5 - 10.1 mg/dL Glucose 112 (H) 74 - 100 mg/dL BUN 4 (L) 7 - 18 mg/dL Creatinine 0.91 0.55 - 1.10 mg/dL BUN/Creatinine 4 Albumin 3.3 (L) 3.4 - 5.0 g/dL Alkaline Phosphatase 76 46 - 116 U/L ALT 47 12 - 78 U/L AST 37 15 - 37 U/L Total Bilirubin 0.5 0.2 - 1.0 mg/dL Protein, Total 7.3 6.4 - 8.2 gm/dL Anion Gap 9 (L) 11 - 22 A/G Ratio 0.8 Globulin 4.0 g/dL Osmolality Calc 260.3 mOsm/kg eGFR (mL/min/1.73m2) >60 >=60 mL/min/1.73m2 High Sensitivity Troponin I Result Value Ref Range Troponin I High Sensitivity (pg/mL) 5.4 4 - 60.3 pg/mL Magnesium Result Value Ref Range Magnesium 2.0 1.8 - 2.4 mg/dL Manual Differential Result Value Ref Range Total Counted 100 % Neutros (manual) 26 15 - 67 % % Bands (manual) 35 (H) 2 - 21 % % Lymphs (manual) 22 10 - 50 % % Monos (manual) 12 (H) 2 - 10 % % Eos (manual) 5 0 - 7 % Differential Comment Vacuolated neutrophils present RBC Morphology abnormal (A) Normal Platelet Estimate Adequate Adequate Toxic Granulation 1+ Anisocytosis ANC# 4.39 K/??L No orders to display ED Course as of 02/03/25 0949 ThuFeb 03, 2025 0937 EKG interpreted by me, sinus rhythm, rate 77, normal axis, QTc not prolonged, no STEMI. [AG] 0937 CBC without leukocytosis or anemia. Magnesium normal. Troponin normal. CMP with mild hypokalemia, otherwise unremarkable. [AG] 0949 Patient reevaluated, states she does feel better. Since she has been here, has not had a bowelmovement. I will send a prescription for loperamide as I suspect likely mild enteritis versus mild colitis. Discussed with patient would only recommend over the next 48 hours. If she develops any newor worsening symptoms return emergency department, otherwise recommend close follow-up with PCP. Patient comfortable with plan and discharge. [AG] ED Course User Index [AG] Madi Adames MD Procedures Medical Decision Making Differential diagnosis includes, but is not limited to, the following high risk, life-threatening, disabling diagnoses: Enteritis, colitis, electrolyte derangement, hypovolemia Plan to check labs. Order IV fluids. Pending labs, will consider imaging. However with benign abdominal exam hold off at this time. Further management documented in ED course. Amount and/or Complexity of Data Reviewed Labs: ordered. ECG/medicine tests: ordered. Risk Prescription drug management. Assessment & Plan Clinical Impression Diagnosis Comment Added By Time Added Diarrhea of presumed infectious origin Madi Adames MD 02/03/2025 9:40 AM Hypokalemia Madi Adames MD 02/03/2025 9:40 AM Disposition Discharge [1] - 02/03/2025 9:48 AM New Prescriptions LOPERAMIDE (IMODIUM) 2 MG CAPSULE Take 1 capsule (2 mg total) by mouth 4 (four) times daily as needed for diarrhea for up to 2 days. Contact information for follow-up Your primary care provider/doctor Next Steps: Schedule an appointment as soon as possible for a visit in 3 day(s) [facility] Emergency Department Specialty: Emergency Medicine [address] [place] [id number] Next Steps: Go to Instructions: For new or worsening symptoms. Electronically Signed By Madi Adames MD 02/03/25 0948 documented in this encounter Plan of Treatment Not on file documented as of this encounter Procedures Procedure Name Priority Date/Time Associated Diagnosis Comments [place] RED TOP (EXTRA TUBES) STAT 02/03/2025 8:12 AM EDT [place] BLUE TOP (EXTRA TUBES) STAT 02/03/2025 8:12 AM EDT [place] EXTRA TUBES STAT 02/03/2025 8:12 AM EDT CBC W/ AUTO DIFF STAT 02/03/2025 8:12 AM EDT MANUAL DIFFERENTIAL Routine 02/03/2025 8 :12 AM EDT HIGH SENSITIVITY TROPONIN I STAT 02/03/2025 8:12 AM EDT MAGNESIUM STAT 02/03/2025 8:12 AM EDT COMPREHENSIVE METABOLIC PANEL STAT 02/03/2025 8:12 AM EDT FS_MODEL_IP_ECG 12-LEAD STAT 02/03/2025 7:49 AM EDT documented in this encounter Results * (ABNORMAL) Manual Differential (02/03/2025 8:12 AM EDT) Total Counted 100 02/03/2025 8:39 AM EDT [facility] % Neutros (manual) 26 15 - 67 % 02/03/2025 8:39 AM EDT [facility] % Bands (manual) 35(H) 2 - 21 % 02/03/2025 8:39 AM EDT [facility] % Lymphs (manual) 22 10 - 50 % 02/03/2025 8:39 AM EDT [facility] % Monos (manual) 12(H) 2 - 10 % 02/03/2025 8:39 AM EDT [facility] % Eos (manual) 5 0 - 7 % 02/03/2025 8:39 AM EDT [facility] Differential Comment Vacuolated neutrophils present 02/03/2025 8:39 AM EDT [facility] RBC Morphology abnormal(A) Normal 8:39 AM EDT [facility] Platelet Estimate Adequate Adequate 02/03/2025 8:39 AM EDT [facility] Toxic Granulation 1+ 02/03/2025 8:39 AM EDT [facility] Anisocytosis 02/03/2025 8:39 AM EDT [facility] Comment:slight ANC# 4.39 K/ L 02/03/2025 8:39 AM EDT [facility] Blood Venipuncture / Unknown 02/03/2025 8:12 AM EDT 02/03/2025 8:13 AM EDT us Madi Adames MD LAB BLOOD ORDERABLES Final Result [facility] [address] [phone] * Magnesium (02/03/2025 8:12 AM EDT) Magnesium 2.0 1.8 - 2.4 mg/dL 02/03/2025 8:37 AM EDT [facility] Blood Venipuncture / Unknown 02/03/2025 8:12 AM EDT 02/03/2025 8:14 AM EDT us Madi Adames MD LAB BLOOD ORDERABLES Final Result Performing Organization Address City/[facility]/ZIP Co de Phone Number [facility] [address] [place] [address] * Red Top Extra Tubes (02/03/2025 8:12 AM EDT) HOLD SPECIMEN (SJ - BKR) Hold for add-ons. 02/03/2025 10:00 AM EDT [facility] Comment:Auto resulted. Blood Venipuncture / Unknown 02/03/2025 8:12 AM EDT 02/03/2025 8:14 AM EDT us Madi Adames MD LAB BLOOD ORDERABLES Final Result [facility] [address] [phone] * Blue Top Extra Tubes (02/03/2025 8:12 AM EDT) HOLD SPECIMEN (SJ - BKR) Hold for add-ons. 02/03/2025 10:00 AM EDT [facility] Comment:Auto resulted. Blood Venipuncture / Unknown 02/03/2025 8:12 AM EDT 02/03/2025 8:14 AM EDT Madi Adames MD LAB BLOOD ORDERABLES Final Result Performing Organization Address [facility] Co de Phone Number [facility] [address] [place] [address] * High Sensitivity Troponin I (02/03/2025 8:12 AM EDT) [facility] Troponin I High Sensitivity (pg/mL) 5.4 4 - 60.3 pg/mL 02/03/2025 8:37 AM EDT [facility] Comment: Troponin Result (pg/mL) *Interpretation 4-60.3 *Normal; less than 99th percentile of normal range >60.3 *Abnormal; greater than 99th percentile of normal range Biotin specimen concentration >300 ng/mL may lead to falsely depressed results for patient samples. Do not use this test for renal dysfunction patients (eGFR <60) unless it is confirmed that the patient is not taking Biotin. Blood Venipuncture / Unknown 02/03/2025 8:12 AM EDT 02/03/2025 8:14 AM EDT Madi Adames MD LAB BLOOD ORDERABLES Final Result Performing Organization Address [facility] Co de Phone Number [facility] [address] [place] [address] * (ABNORMAL) Comprehensive metabolic panel (02/03/2025 8:12 AM EDT) [facility] Sodium 131(L) 136 - 145 meq/L 02/03/2025 8:37 AM EDT [facility] Potassium 3.1(L) 3.5 - 5.1 meq/L 02/03/2025 8:37 AM EDT [facility] Chloride 97(L) 98 - 107 meq/L 02/03/2025 8:37 AM EDT [facility] CO2 28 21 - 32 meq/L 02/03/2025 8:37 AM EDT [facility] Calcium 8.7 8.5 - 10.1 mg/dL 02/03/2025 8:37 AM EDT [facility] Glucose 112(H) 74 - 100 mg/dL 02/03/2025 8:37 AM EDT [facility] BUN 4(L) 7 - 18 mg/dL 02/03/2025 8:37 AM EDT [facility] Creatinine 0.91 0.55 - 1.10 mg/dL 02/03/2025 8:37 AM EDT [facility] BUN/Creatinine 4 02/03/2025 8:37 AM EDT [facility] Albumin 3.3(L) 3.4 - 5.0 g/dL 02/03/2025 8:37 AM EDT [facility] Alkaline Phosphatase 76 46 - 116 U/L 02/03/2025 8:37 AM EDT [facility] ALT 47 12 - 78 U/L 02/03/2025 8:37 AM EDT [facility] AST 37 15 - 37 U/L 02/03/2025 8:37 AM EDT [facility] Total Bilirubin 0.5 0.2 - 1.0 mg/dL 02/03/2025 8:37 AM EDT [facility] Protein, Total 7.3 6.4 - 8.2 gm/dL 02/03/2025 8:37 AM EDT [facility] Anion Gap 9(L) 11 - 22 02/03/2025 8:37 AM EDT [facility] A/G Ratio 0.8 02/03/2025 8:37 AM EDT [facility] Globulin 4.0 g/dL 02/03/2025 8:37 AM EDT [facility] Osmolality Calc 260.3 mOsm/kg 8:37 AM EDT [facility] eGFR (mL/min/1.73m2) >60 >=60 mL/min/1.7 3m2 02/03/2025 8:37 AM EDT [facility] Comment:ESTIMATED GFR IS NOT ACCURATE CREATININE CLEARANCE IN PREDICTING GLOMERULAR FILTRATION RATE. ESTIMATED GFR IS NOT APPLICABLE FOR DIALYSIS PATIENTS. Blood Venipuncture / Unknown 02/03/2025 8:12 AM EDT 02/03/2025 8:14 AM EDT us Madi Adames MD LAB BLOOD ORDERABLES Final Result [facility] [address] [place], [place] [address] [phone] * (ABNORMAL) CBC with Auto Diff (02/03/2025 8:12 AM EDT) WBC 7.2 4.8 - 10.8 K/ L 02/03/2025 8:39 AM EDT [facility] RBC 4.21 3.50 - 5.20 M/ L 02/03/2025 8:39 AM EDT [facility] Hemoglobin 12.6 11.7 - 15.8 GM/DL 02/03/2025 8:39 AM EDT [facility] Hematocrit 35.0 35.0 - 47.0 % 02/03/2025 8:39 AM EDT [facility] MCV 83 81 - 101 fL 02/03/2025 8:39 AM EDT [facility] MCH 29.9 27.0 - 34.0 pg 02/03/2025 8:39 AM EDT [facility] MCHC 36.0 32.0 - 36.0 GM/DL 02/03/2025 8:39 AM EDT [facility] RDW 12.4 11.5 - 14.5 % 02/03/2025 8:39 AM EDT [facility] Platelets 233 150 - 400 K/CU MM 02/03/2025 8:39 AM EDT [facility] MPV 8.7(L) 9.4 - 12.4 fL 02/03/2025 8:39 AM EDT [facility] Nucleated Red Blood Cell 0.0 0 - 0.2 % 02/03/2025 8:39 AM EDT [facility] NRBC Absolute <0.01 0 - 0.012 K/ul 02/03/2025 8:39 AM EDT [facility] Blood Venipuncture / Unknown 02/03/2025 8:12 AM EDT 02/03/2025 8:13 AM EDT Narrative [facility] - 02/03/2025 8:39 AM EDT When CBC w/ Auto Diff is ordered the lab will add a Manual Differential as a quality check at no additional charge if: Lymphocytes greater than seventy five percent with normal or increased WBC Monocytes greater than Fifteen percent Basophil greater than four percent Bands >10% or several immature myeloids are seen on scan Blast? Flag noted Atypical Lymph flag noted Madi Adames MD LAB BLOOD ORDERABLES Final Result [facility] [address] [place] [address] * ECG 12 lead (02/03/2025 7:49 AM EDT) VENTRICULAR RATE EKG/MIN 77 BPM GE MUSE ATRIAL RATE (MCT) 77 BPM GE MUSE MT Interval 156 ms GE MUSE QRS-INTERVAL (MSEC) 90 ms GE MUSE QT Interval 370 ms GE MUSE QTC Interval 418 ms GE MUSE P [place] 52 degrees GE MUSE R AXIS (MCT) -25 degrees GE MUSE T Wave [place] 24 degrees GE MUSE [place] Diagnosis Normal sinus rhythm Minimal voltage criteria for LVH, may be normal variant ( R in aVL ) Borderline ECG No previous ECGs available Confirmed by Mariann ROWELL RICHARD ([id number]) on 02/04/2025 2:12:14 PM GE MUSE 02/03/2025 7:49 AM EDT 02/04/2025 2:12 PM EDT us Madi Adames MD ECG ORDERABLES Final Resul t GE LINA documented in this encounter Visit Diagnoses Diagnosis Diarrhea of presumed infectious origin- Primary Hypokalemia Hypopotassemia documented in this encounter Administered Medications Inactive Administered Medications - up to 3 most recent administrations Medication Order MAR Action Action Date Dose Rate Site potassium chloride (KLOR-CON) ER tablet 40 mEq 40 mEq Once, oral, On Thu02/03/25 at 0945, For 1 dose, DO NOT CRUSH THIS DOSAGE FORM. Given 02/03/2025 9:56 AM EDT 40 mEq sodium chloride 0.9% (NS) bolus 1,000 mL Once, intravenous, Administer over 60 Minutes, On Thu02/03/25 at 0815, For 1 dose New Bag 02/03/2025 8:23 AM EDT 1,000 mLs 1000 mL/hr documented in this encounter Active and Recently Administered Medications Times are shown in EDT. Scheduled Medication Order 02/01/2025 02/02/2025 02/03/2025 potassium chloride (KLOR-CON) ER tablet 40 mEq (COMPLETED) 40 mEq Once, oral, On Thu02/03/25 at 0945, For 1 dose, DO NOT CRUSH THIS DOSAGE FORM. 0956 (Given - Provid er: Kristel Nicole RN) sodium chloride 0.9% (NS) bolus (COMPLETED) 1,000 mL Once, intravenous, Administer over 60 Minutes, On Thu02/03/25 at 0815, For 1 dose 0823 (New Bag - Prov ider: Kristel Nicole RN)0959 (Stopped - Provider: Kristel Nicole RN) documented in this encounter Care Teams Textile Screen Maker Relationship Specialty Start Date End Date Kavon Sherman MD [address] [place] [place] [address] PCP - General Family Medicine 02/03/25 documented as of this encounter
--- OUTSIDE RECORDS SUMMARY | 2025-02-09 09:59 | XMS_ITS | Clinical Summary ---
Author Organization [employer] ([place], [place], [place], [place]) Address [address] [place] [address] Care Team Providers Care Powder Shoveler Name Role Phone Kavon Sherman MD Primary Care Provider Allergies Active Allergy Reactions Criticality Noted Date Comments Promethazine 02/03/2025 Medications loperamide (IMODIUM) 2 mg capsule Take 1 capsule (2 mg total) by mouth 4 (four) times daily as needed for diarrhea for up to 2 days. 8 capsule 5 02/06/20 25 Encounters Date Type Department Care Team Description 02/03/2025 7:49 AM EDT - 02/03/2025 10:07 AM EDT Emergency [facility] Emergency Department [address] [place] [phone] Madi Adames MD Diarrhea of presumed infectious origin (Primary Dx); Hypokalemia Discharge Disposition: Home or Self Care 02/03/2025 Travel from Last 3 Months Social History Tobacco Use Types Packs/Day Years [...] on file Sexual Orientation Not on file Last Filed Vital Signs Vital Sign Reading [...] Mass Index 34.33 02/03/2025 7:54 AM EDT Plan of Treatment Health Maintenance Due Date Last Done Comments CT Colonography 1965 Colonoscopy 1965 Colorectal Cancer Screening 1965 FOBT/FIT 1965 Fit-DNA (Cologuard) 1965 Sigmoidoscopy 1965 Depression Screening (12+) 1977 Tobacco Cessation Counseling and Screening (12+) 08/19 HIV Screening 1980 Hepatitis C Screening 1983 DTAP/TDAP/TD VACCINES (1 - Tdap) 1984 Pneumococcal 50+ years (1 of 2 - PCV) 1984 Pap Smear 1986 Breast Cancer Screening 2005 Lipid Panel 2010 Shingles Vaccine (Zoster) (1 of 2) 2015 COVID-19 VACCINE (1 - season) 2024 Influenza Vaccine (#1) 2025 Procedures Procedure Name Priority Date/Time Associated Diagnosis Comments MANUAL DIFFERENTIAL Routine 02/03/2025 8 :12 AM EDT MAGNESIUM STAT 02/03/2025 8:12 AM EDT [place] RED TOP (EXTRA TUBES) STAT 02/03/2025 8:12 AM EDT [place] BLUE TOP (EXTRA TUBES) STAT 02/03/2025 8:12 AM EDT [place] EXTRA TUBES STAT 02/03/2025 8:12 AM EDT HIGH SENSITIVITY TROPONIN I STAT 02/03/2025 8:12 AM EDT COMPREHENSIVE METABOLIC PANEL STAT 02/03/2025 8:12 AM EDT CBC W/ AUTO DIFF STAT 02/03/2025 8:12 AM EDT FS_MODEL_IP_ECG 12-LEAD STAT 02/03/2025 7:49 AM EDT from Last 3 Months Results * Red Top Extra Tubes (02/03/2025 8:12 AM EDT) HOLD SPECIMEN (SJ - BKR) Hold for add-ons. 02/03/2025 10:00 AM EDT [facility] Comment:Auto resulted. Blood Venipuncture / Unknown 02/03/2025 8:12 AM EDT 02/03/2025 8:14 AM EDT Madi Adames MD LAB BLOOD ORDERABLES Final Result Performing Organization Address City/[facility]/ZIP Co de Phone Number [facility] [address] [place] [address] * Blue Top Extra Tubes (02/03/2025 8:12 AM EDT) HOLD SPECIMEN (SJ - BKR) Hold for add-ons. 02/03/2025 10:00 AM EDT [facility] Comment:Auto resulted. Blood Venipuncture / Unknown 02/03/2025 8:12 AM EDT 02/03/2025 8:14 AM EDT us Madi Adames MD LAB BLOOD ORDERABLES Final Result Performing Organization Address City/[facility]/ZIP Co de Phone Number [facility] [address] [place] [address] * (ABNORMAL) CBC with Auto Diff (02/03/2025 8:12 AM EDT) WBC 7.2 4.8 - 10.8 K/ L 02/03/2025 8:39 AM EDT [facility] RBC 4.21 3.50 - 5.20 M/ L 02/03/2025 8:39 AM EDT [facility] Hemoglobin 12.6 11.7 - 15.8 GM/DL 02/03/2025 8:39 AM EDT [facility] Hematocrit 35.0 35.0 - 47.0 % 02/03/2025 8:39 AM EDT [facility] MCV 83 81 - 101 fL 02/03/2025 8:39 AM EDT [facility] MCH 29.9 27.0 - 34.0 pg 02/03/2025 8:39 AM EDT [facility] MCHC 36.0 32.0 - 36.0 GM/DL 02/03/2025 8:39 AM EDT [facility] RDW 12.4 11.5 - 14.5 % 02/03/2025 8:39 AM EDT [facility] Platelets 233 150 - 400 K/CU MM 02/03/2025 8:39 AM EDT [facility] MPV 8.7(L) 9.4 - 12.4 fL 02/03/2025 8:39 AM EDT [facility] Nucleated Red Blood Cell 0.0 0 - 0.2 % 02/03/2025 8:39 AM EDT [facility] NRBC Absolute <0.01 0 - 0.012 K/ul 02/03/2025 8:39 AM EDT [facility] Blood Venipuncture / Unknown 02/03/2025 8:12 AM EDT 02/03/2025 8:13 AM EDT [facility] - 02/03/2025 8:39 AM EDT When [...] Blast? Flag noted Atypical Lymph flag noted us Madi Adames MD LAB BLOOD ORDERABLES Final Result [facility] [address] [place] [address], [facility] [phone] * (ABNORMAL) Manual Differential (02/03/2025 8:12 AM EDT) Total Counted 100 02/03/2025 8:39 AM EDT [facility] % Neutros (manual) 26 15 - 67 % 02/03/2025 8:39 AM EDT [facility] % Bands (manual) 35(H) 2 - 21 % 02/03/2025 8:39 AM EDT [facility] % Lymphs (manual) 22 10 - 50 % 02/03/2025 8:39 AM EDT [facility] % Monos (manual) 12(H) 2 - 10 % 02/03/2025 8:39 AM EDT [facility] % Eos (manual) 5 0 - 7 % 02/03/2025 8:39 AM EDT [facility] Differential Comment Vacuolated neutrophils present 02/03/2025 8:39 AM EDT [facility] RBC Morphology abnormal(A) Normal 8:39 AM EDT [facility] Platelet Estimate Adequate Adequate 02/03/2025 8:39 AM EDT [facility] Toxic Granulation 1+ 02/03/2025 8:39 AM EDT [facility] Anisocytosis 02/03/2025 8:39 AM EDT [facility] Comment:slight ANC# 4.39 K/ L 02/03/2025 8:39 AM EDT [facility] Blood Venipuncture / Unknown 02/03/2025 8:12 AM EDT 02/03/2025 8:13 AM EDT Madi Adames MD LAB BLOOD ORDERABLES Final Result [facility] [address] [place] [address] * High Sensitivity Troponin I (02/03/2025 8:12 AM EDT) Troponin I High Sensitivity (pg/mL) 5.4 4 - 60.3 pg/mL 02/03/2025 8:37 AM EDT [facility] Comment: Troponin Result (pg/mL) *Interpretation [...] BLOOD ORDERABLES Final Result Performing Organization Address [facility]/ZIP Co de Phone Number [facility] [address] [place] [address] * Magnesium (02/03/2025 8:12 AM EDT) Magnesium 2.0 1.8 - 2.4 mg/dL 02/03/2025 8:37 AM EDT [facility] Blood Venipuncture / Unknown 02/03/2025 8:12 AM EDT 02/03/2025 8:14 AM EDT Madi Adames MD LAB BLOOD ORDERABLES Final Result [facility] [address] [place] [address] * (ABNORMAL) Comprehensive metabolic panel (02/03/2025 8:12 AM EDT) Sodium 131(L) 136 - 145 meq/L 02/03/2025 8:37 AM EDT [facility] Potassium 3.1(L) 3.5 - 5.1 meq/L 02/03/2025 8:37 AM EDT [facility] Chloride 97(L) 98 - 107 meq/L 02/03/2025 8:37 AM EDT [facility] CO2 28 21 - 32 meq/L 02/03/2025 8:37 AM EDT [facility] Calcium 8.7 8.5 - 10.1 mg/dL 02/03/2025 8:37 AM EDT [facility] Glucose 112(H) 74 - 100 mg/dL 02/03/2025 8:37 AM EDT [facility] BUN 4(L) 7 - 18 mg/dL 02/03/2025 8:37 AM EDT [facility] Creatinine 0.91 0.55 - 1.10 mg/dL 02/03/2025 8:37 AM EDT [facility] BUN/Creatinine 4 02/03/2025 8:37 AM EDT [facility] Albumin 3.3(L) 3.4 - 5.0 g/dL 02/03/2025 8:37 AM EDT [facility] Alkaline Phosphatase 76 46 - 116 U/L 02/03/2025 8:37 AM EDT [facility] ALT 47 12 - 78 U/L 02/03/2025 8:37 AM EDT [facility] AST 37 15 - 37 U/L 02/03/2025 8:37 AM EDT [facility] Total Bilirubin 0.5 0.2 - 1.0 mg/dL 02/03/2025 8:37 AM EDT [facility] Protein, Total 7.3 6.4 - 8.2 gm/dL 02/03/2025 8:37 AM EDT [facility] Anion Gap 9(L) 11 - 22 02/03/2025 8:37 AM EDT [facility] A/G Ratio 0.8 02/03/2025 8:37 AM EDT [facility] Globulin 4.0 g/dL 02/03/2025 8:37 AM EDT [facility] Osmolality Calc 260.3 mOsm/kg 8:37 AM EDT [facility] eGFR (mL/min/1.73m2) >60 >=60 mL/min/1.7 3m2 02/03/2025 8:37 AM EDT [facility] Comment:ESTIMATED GFR IS NOT ACCURATE CREATININE CLEARANCE IN PREDICTING GLOMERULAR FILTRATION RATE. ESTIMATED GFR IS NOT APPLICABLE FOR DIALYSIS PATIENTS. Blood Venipuncture / Unknown 02/03/2025 8:12 AM EDT 02/03/2025 8:14 AM EDT Madi Adames MD LAB BLOOD ORDERABLES Final Result [facility] [address] [place] [address] * ECG 12 lead (02/03/2025 7:49 AM EDT) VENTRICULAR RATE EKG/MIN 77 BPM GE MUSE ATRIAL RATE (MCT) 77 BPM GE MUSE [place] Interval 156 ms GE MUSE QRS-INTERVAL (MSEC) 90 ms GE MUSE QT Interval 370 ms GE MUSE QTC Interval 418 ms GE MUSE P [place] 52 degrees GE MUSE R AXIS (MCT) -25 degrees GE MUSE T Wave [place] 24 degrees GE MUSE [place] Diagnosis Normal sinus rhythm Minimal voltage criteria for LVH, may be normal variant ( R in aVL ) Borderline ECG No previous ECGs available Confirmed by Mariann ROWELL RICHARD ([id number]) on 02/04/2025 2:12:14 PM GE MUSE 02/03/2025 7:49 AM EDT 02/04/2025 2:12 PM EDT Madi Adames MD ECG ORDERABLES Final Resul t GE MUSE from Last 3 Months Insurance R Care Teams Powder Shoveler Relationship Specialty Start Date End Date Kavon Sherman MD [address] [place] [address] PCP - General Family Medicine 02/03/25
--- OUTSIDE RECORDS SUMMARY | 2025-02-09 09:59 | XMS_ITS | Referral Summary ---
Author Organization [employer] ([place], [place], [place], [place]) Address [address] [place] [address] Care Team Providers Care Technology Teacher Name Role Phone Kavon Sherman MD Primary Care Provider [phone] Encounters Date Type Department Care Team Description 02/03/2025 Travel 02/03/2025 7:49 AM EDT - 02/03/2025 10:07 AM EDT Emergency [facility] Emergency Department [address] [phone] Madi Adames MD Diarrhea of presumed infectious origin (Primary Dx); Hypokalemia Discharge Disposition: Home or Self Care from Last 3 Months Allergies Active Allergy Reactions Criticality Noted Date Comments Promethazine 02/03/2025 Medications loperamide (IMODIUM) 2 mg capsule Take 1 capsule (2 mg total) by mouth 4 (four) times daily as needed for diarrhea for up to 2 days. 8 capsule 02/06/20 25 Social History Tobacco Use Types Packs/Day Years [...] 02/03/2025 7:54 AM EDT Plan of Treatment Not on file Procedures Procedure Name Priority Date/Time Associated Diagnosis [...] Hold for add-ons. 02/03/2025 10:00 AM EDT [facility] Comment:Auto resulted. Blood Venipuncture / Unknown 02/03/2025 8:12 AM EDT 02/03/2025 8:14 AM EDT Madi Adames MD LAB BLOOD ORDERABLES Final Result Performing Organization Address [facility]/ZIP Co de Phone Number [facility] [address] [place] [address] * Blue Top Extra Tubes (02/03/2025 8:12 AM EDT) HOLD SPECIMEN (SJ - BKR) Hold for add-ons. 02/03/2025 10:00 AM EDT [facility] Comment:Auto resulted. Blood Venipuncture / Unknown 02/03/2025 8:12 AM EDT 02/03/2025 8:14 AM EDT Madi Adames MD LAB BLOOD ORDERABLES Final Result Performing Organization Address City/[facility]/ZIP Co de Phone Number [facility] [address] [place] [address] * (ABNORMAL) CBC with Auto Diff (02/03/2025 8:12 AM EDT) WBC 7.2 4.8 - 10.8 K/ L 02/03/2025 8:39 AM EDT [facility] RBC 4.21 3.50 - 5.20 M/ L 02/03/2025 8:39 AM EDT [facility] Hemoglobin 12.6 11.7 - 15.8 GM/DL 02/03/2025 8:39 AM EDT [facility] Hematocrit 35.0 35.0 - 47.0 % 02/03/2025 8:39 AM EDT [facility] MCV 83 81 - 101 fL 02/03/2025 8:39 AM EDT [facility] MCH 29.9 27.0 - 34.0 pg 02/03/2025 8:39 AM EDT [facility] MCHC 36.0 32.0 - 36.0 GM/DL 02/03/2025 8:39 AM EDT [facility] RDW 12.4 11.5 - 14.5 % 02/03/2025 8:39 AM EDT [facility] Platelets 233 150 - 400 K/CU MM 02/03/2025 8:39 AM EDT [facility] MPV 8.7(L) 9.4 - 12.4 fL 02/03/2025 8:39 AM EDT [facility] Nucleated Red Blood Cell 0.0 0 - 0.2 % 02/03/2025 8:39 AM EDT [facility] NRBC Absolute <0.01 0 - 0.012 K/ul 02/03/2025 8:39 AM EDT [facility] Blood Venipuncture / Unknown 02/03/2025 8:12 AM EDT 02/03/2025 8:13 AM EDT Narrative [facility] - 02/03/2025 8:39 AM EDT When [...] Adames MD LAB BLOOD ORDERABLES Final Result [facility] [address] [place] [address] * (ABNORMAL) Manual Differential (02/03/2025 8:12 AM EDT) Total Counted 100 02/03/2025 8:39 AM EDT [facility] % Neutros (manual) 26 15 - 67 % 02/03/2025 8:39 AM EDT [facility] % Bands (manual) 35(H) 2 - 21 % 02/03/2025 8:39 AM EDT [facility] % Lymphs (manual) 22 10 - 50 % 02/03/2025 8:39 AM EDT [facility] % Monos (manual) 12(H) 2 - 10 % 02/03/2025 8:39 AM EDT [facility] % Eos (manual) 5 0 - 7 % 02/03/2025 8:39 AM EDT [facility] Differential Comment Vacuolated neutrophils present 02/03/2025 8:39 AM EDT [facility] RBC Morphology abnormal(A) Normal 8:39 AM EDT [facility] Platelet Estimate Adequate Adequate 02/03/2025 8:39 AM EDT [facility] Toxic Granulation 1+ 02/03/2025 8:39 AM EDT [facility] Anisocytosis 02/03/2025 8:39 AM EDT [facility] Comment:slight ANC# 4.39 K/ L 02/03/2025 8:39 AM EDT [facility] Blood Venipuncture / Unknown 02/03/2025 8:12 AM EDT 02/03/2025 8:13 AM EDT Madi Adames MD LAB BLOOD ORDERABLES Final Result [facility] [address] [place] [address] * High Sensitivity Troponin I (02/03/2025 8:12 AM EDT) Troponin I High Sensitivity (pg/mL) 5.4 4 - 60.3 pg/mL 02/03/2025 8:37 AM EDT [facility] Comment: Troponin Result (pg/mL) *Interpretation 4-60.3 [...] BLOOD ORDERABLES Final Result Performing Organization Address [facility]/ZIP Co de Phone Number [facility] [address] [place] [address] * Magnesium (02/03/2025 8:12 AM EDT) Magnesium 2.0 1.8 - 2.4 mg/dL 02/03/2025 8:37 AM EDT [facility] Blood Venipuncture / Unknown 02/03/2025 8:12 AM EDT 02/03/2025 8:14 AM EDT Madi Adames MD LAB BLOOD ORDERABLES Final Result Performing Organization Address City/[facility] Co de Phone Number [facility] [address] [place] [address] * (ABNORMAL) Comprehensive metabolic panel (02/03/2025 8:12 AM EDT) Sodium 131(L) 136 - 145 meq/L 02/03/2025 8:37 AM EDT [facility] Potassium 3.1(L) 3.5 - 5.1 meq/L 02/03/2025 8:37 AM EDT [facility] Chloride 97(L) 98 - 107 meq/L 02/03/2025 8:37 AM EDT [facility] CO2 28 21 - 32 meq/L 02/03/2025 8:37 AM EDT [facility] Calcium 8.7 8.5 - 10.1 mg/dL 02/03/2025 8:37 AM EDT [facility] Glucose 112(H) 74 - 100 mg/dL 02/03/2025 8:37 AM EDT [facility] BUN 4(L) 7 - 18 mg/dL 02/03/2025 8:37 AM EDT [facility] Creatinine 0.91 0.55 - 1.10 mg/dL 02/03/2025 8:37 AM T [facility] BUN/Creatinine 4 02/03/2025 8:37 AM T [facility] Albumin 3.3(L) 3.4 - 5.0 g/dL 02/03/2025 8:37 AM EDT [facility] Alkaline Phosphatase 76 46 - 116 U/L 02/03/2025 8:37 AM EDT [facility] ALT 47 12 - 78 U/L 02/03/2025 8:37 AM [facility] AST 37 15 - 37 U/L 02/03/2025 8:37 AM [facility] Total Bilirubin 0.5 0.2 - 1.0 mg/dL 02/03/2025 8:37 AM [facility] Protein, Total 7.3 6.4 - 8.2 gm/dL 02/03/2025 8:37 AM [facility] Anion Gap 9(L) 11 - 22 02/03/2025 8:37 AM [facility] A/G Ratio 0.8 02/03/2025 8:37 AM [facility] Globulin 4.0 g/dL 02/03/2025 8:37 AM [facility] Osmolality Calc 260.3 mOsm/kg 8:37 AM [facility] eGFR (mL/min/1.73m2) >60 >=60 mL/min/1.7 3m2 02/03/2025 8:37 AM [facility] Comment:ESTIMATED GFR IS NOT ACCURATE CREATININE CLEARANCE IN PREDICTING GLOMERULAR FILTRATION RATE. ESTIMATED GFR IS NOT APPLICABLE FOR DIALYSIS PATIENTS. Blood Venipuncture / Unknown 02/03/2025 8:12 AM EDT 02/03/2025 8:14 AM EDT Madi Adames MD LAB BLOOD ORDERABLES Final Result Performing Organization Address City/[facility] Co de Phone Number [facility] [address] [place] [address], [facility] [phone] * ECG 12 lead (02/03/2025 7:49 AM EDT) VENTRICULAR RATE EKG/MIN 77 BPM GE MUSE ATRIAL RATE (MCT) 77 BPM GE MUSE [place] Interval 156 ms GE MUSE QRS-INTERVAL (MSEC) 90 ms GE MUSE QT Interval 370 ms GE MUSE QTC Interval 418 ms GE MUSE P [place] 52 degrees GE MUSE R AXIS (MCT) -25 degrees GE MUSE T Wave [place] 24 degrees GE MUSE [place] Diagnosis Normal sinus rhythm Minimal voltage criteria for LVH, may be normal variant ( R in aVL ) Borderline ECG No previous ECGs available Confirmed by Mariann ROWELL RICHARD ([id number]) on 02/04/2025 2:12:14 PM GE MUSE 02/03/2025 7:49 AM EDT 02/04/2025 2:12 PM EDT Madi Adames MD ECG ORDERABLES Final Resul t Performing Organization Address City/[facility] Co de Phone Number GE MUSE from Last 3 [place] [address] [employer] Care Teams Technology Teacher Relationship Specialty Start Date End Date Kavon Sherman MD [address] [place] [address] PCP - General Family Medicine 02/03/25
--- OUTSIDE RECORDS SUMMARY | 2025-02-09 09:59 | XMS_ITS | Encounter Summary ---
Author Organization [employer] ([place], [place], [place], [place]) Address [address] [place] [address] Care Team Providers Care Dance Artist Name Role Phone Kavon Sherman MD Primary Care Provider [phone] Encounter Details Date Type Department Care Team (Latest Contact Info) Description 02/03/2025 Travel Social History Tobacco Use Types Packs/Day Years Used Date Smoking Tobacco: Every Day Smokeless Tobacco: Never Comments:vapes Alcohol Use Standard Drinks/Week Comments Not Currently 0 (1 standard drink = 0.6 oz pur e alcohol) Comments Unknown Sex and Gender Information Value Date Recorded Sex Assigned at Not on file Legal Sex Female 7:45 PM CDT Gender Identity Not on file Sexual Orientation Not on file documented as of this encounter Plan of Treatment Not on file documented as of this encounter Visit Diagnoses Not on filedocumented in this encounter Care Teams Dance Artist Relationship Specialty Start Date End Date Kavon Sherman MD [address] [place] [address] PCP - General Family Medicine 02/03/25 documented as of this encounter
[2025-02-09 10:32] LABS: Hematocrit 35.8 % (37.0-47.0); Hemoglobin 11.6 g/dL (12.2-16.2); Immature Granulocytes % 3.5 %; Mean Corpuscular HGB Conc 32.4 g/dL (31.8-35.4); Mean Corpuscular Hemoglobin 28.5 pg (27.0-31.2); Mean Corpuscular Volume 88.0 fl (81-99); Nucleated Red Blood Cells % 0 %; Platelet Count 392 K/mm3 (142-424); Red Blood Count 4.07 M/mm3 (4.20-5.40); Red Cell Distribution Width-SD 41.9 fL; White Blood Count 9.6 K/mm3 (4.8-10.8)
[2025-02-09 10:59] LABS: Albumin Level 3.9 g/dl (3.5-5.0); Chloride 100 mmol/L (98-107); Sodium 137 mmol/L (136-145)
[2025-02-09 11:00] LABS: Potassium 3.5 mmoL/L (3.5-5.1)
[2025-02-09 11:02] LABS: Alanine Aminotransferase 33 U/L (12-78); Anion Gap 7.5 mEq/L (5-15); Aspartate Amino Transferase 31 U/L (14-36); Bilirubin,Unconjugated 0.2 mg/dL (0.0-1.1); Blood Urea Nitrogen 6 mg/dl (7-17); Carbon Dioxide 33 mmol/L (22.0-30.0); Cholesterol 217 mg/dl (140-200); Creatinine,Serum 0.70 mg/dl (0.52-1.04); Estimated Glomerular Filt Rate 86 ml/min (>60); GFR (African American) 104 ML/MIN (>60); Total Protein,Serum 6.6 g/dl (6.3-8.2); Triglycerides 128 mg/dl (30-150)
[2025-02-09 11:03] LABS: Alkaline Phosphatase 71 U/L (38-126); Bilirubin,Direct 0.1 mg/dl (0.0-0.4); Bilirubin,Indirect 0.2 mg/dL (0.0-0.9); Bilirubin,Total 0.3 mg/dl (0.2-1.3); Calcium 9.1 mg/dl (8.4-10.2); Glucose 100 mg/dl (74-100); HDL Cholesterol 51 mg/dl (40-60); Magnesium 1.9 mg/dl (1.6-2.3)
[2025-02-09 11:19] LABS: Free T4 (Free Thyroxine) 0.76 ng/dl (0.78-2.19)
[2025-02-09 11:33] LABS: Thyroid Stimulating Hormone 10.00 uIU/mL (0.465-4.68)
== END 2025-02-09 23:59 | disposition home or self-care (01) ==
LOC: LAB 09:57
PROVIDERS: PCP Family Medicine; Visit Provider Nurse Practitioner
DX: I48.0 Paroxysmal atrial fibrillation (principal); E78.5 Hyperlipidemia, unspecified
CPT/HCPCS: 36415; 80048; 80061; 80076; 83735; 84439; 84443; 85025